=== PATIENT | female | born 1960 | race Caucasian/White ===

== ENCOUNTER 2022-07-14 08:12 | Outpatient (CLI) | payer BC, SELFPAY ==
--- OUTSIDE RECORDS SUMMARY | 2022-07-14 08:14 | XMS_ITS | Encounter Summary ---
:1960 Author Organization [facility] Address [address] [place] [address] Care Team Providers Name Role Phone Toña Tejada APRN, ANYI Primary Care Provider [phone] Reason for Visit Reason Onset Date Comments RX 04/25/2020 Encounter Details Date Type Department Care Team Description 04/25/2020 Telephone [place] Matthew Hopkins MD RX [address] [place], [place] [address] [place], [place] [phone] (Wo rk) Social History Tobacco Use Types Packs/Day Years Used Date Former Smoker Smokeless Tobacco: Never Used Alcohol Use Standard Drinks/Week Comments Yes 0 (1 standard drink = 0.6 oz pure alcoho l) Sex Assigned at Date Recorded Not on file documented as of this encounter Miscellaneous Notes Telephone Encounter - Elizabeth Mishra - 04/25/2020 2:26 PM CDT Patient is currently at pharmacy ([facility] in [place]) wanting to slate picker RX for Synthroid but it is not there. She is wondering if this could be sent while she is there. documented in this encounter Plan of Treatment Not on filedocumented as of this encounter Visit Diagnoses Diagnosis Mixed hyperlipidemia - Primary Hypothyroidism, unspecified type documented in this encounter Care Teams Air Bag Builder Relationship Specialty Start Date End Date Toña Tejada APRN, FREIGHT ADJUSTER PCP - General Family Medicine 01/06/19 06/06/20 100 [place] [address] documented as of this encounter
--- OUTSIDE RECORDS SUMMARY | 2022-07-14 08:14 | XMS_ITS | Encounter Summary ---
:1960 Author Organization [facility] Address [address] [place] [address] Care Team Providers Name Role Phone None, Pcp Primary Care Provider Unavailable Reason for Visit Reason Comments Med Refill Encounter Details Date Type Department Care Team Description 04/22/2021 Refill Matthew Yeh, Hypothyroidism, unspecified type; [address] [facility] 20 Anxiety; [place], [place] [address] [place] Depression, unspecified depression type [phone] [place] [address] Social History Tobacco Use Types Packs/Day Years Used Date Former Smoker Smokeless Tobacco: Never Used Alcohol Use Standard Drinks/Week Comments Yes 0 (1 standard drink = 0.6 oz pure alcoho l) Sex Assigned at Date Recorded Not on file documented as of this encounter Miscellaneous Notes Telephone Encounter - Roxy Leggett LPN - 04/24/2021 9:22 AM CDT Noted Telephone Encounter - Matthew Hopkins MD - 04/23/2021 6:13 PM CDT Lab orders have been placed. Telephone Encounter - Wendi Espana - 04/23/2021 11:48 AM CDT Pt is out of medications Patient will be in on 04/29 for fasting labs and visit on 05/06. Please order labs needed. Thank you documented in this encounter Plan of Treatment Not on filedocumented as of this encounter Visit Diagnoses Diagnosis Hypothyroidism, unspecified type Anxiety Anxiety state, unspecified Depression, unspecified depression type documented in this encounter Care Teams Certified Dental Assistant Relationship Specialty Start Date End Date None, Pcp PCP - General Mulling Machine Operator 06/26/20 06/02/21 [address] [place] [address] documented as of this encounter
--- OUTSIDE RECORDS SUMMARY | 2022-07-14 08:14 | XMS_ITS | Encounter Summary ---
:1960 Author Organization [facility] Address [address] [place] [address] Care Team Providers Name Role Phone Toña Tejada INSIDE SALES SPECIALIST, [facility] Primary Care Provider Reason for Visit Reason Onset Date Comments patient call 01/24/2020 Encounter Details Date Type Department Care Team Description 01/24/2020 Telephone [place] Toña Tejada, patient call [address] [employer] INSIDE SALES SPECIALIST, [place], [place] [address] [facility] [phone] [place], [place] [address] Social History Tobacco Use Types Packs/Day Years Used Date Former Smoker Smokeless Tobacco: Never Used Alcohol Use Standard Drinks/Week Comments Yes 0 (1 standard drink = 0.6 oz pure alcoho l) Sex Assigned at Date Recorded Not on file documented as of this encounter Miscellaneous Notes Telephone Encounter - Cherelle Dempsey RN - 01/25/2020 8:57 AM CDT Patient informed. Telephone Encounter - April Damon - 01/24/2020 2:05 PM CDT Mailbox full unable to leave a message Telephone Encounter - Matthew Hopkins MD - 01/24/2020 1:43 PM CDT Let [facility] know that I have filled her request for duloxetine. I gave her 90 days and no refills asshe will be due towards the end of April for a clinic visit, lab tests etc. After that visit then we will get her a full year of meds. Telephone Encounter - Beatriz Fitch - 01/24/2020 11:49 AM CDT [facility] stating that the pharmacy was supposed to send a request for Duloxetine. I don't seethat request. She is wanting this filled any questions she can be reached at [phone] documented in this encounter Plan of Treatment Not on filedocumented as of this encounter Visit Diagnoses Diagnosis Anxiety Anxiety state, unspecified Depression, unspecified depression type documented in this encounter Care Teams Scene And Lighting Design Lecturer Relationship Specialty Start Date End Date Toña Tejada, INSIDE SALES SPECIALIST, WIRE COINER PCP - General Family Medicine 01/06/19 06/06/20 100 [facility] [place] [address] documented as of this encounter
--- OUTSIDE RECORDS SUMMARY | 2022-07-14 08:14 | XMS_ITS | Encounter Summary ---
:1960 Author Organization [facility] Address [address] [place] [address] Care Team Providers Name Role Phone None, Pcp Primary Care Provider Unavailable Encounter Details Date Type Department Care Team Description 04/29/2021 Lab [place] Diabetes mellitus screening; [address] Mixed hyperlipidemia; [place], [place] [address] Hypothyroidism, unspecified type; [phone] Screening for d eficiency anemia Social History Tobacco Use Types Packs/Day Years Used Date Former Smoker Smokeless Tobacco: Never Used Alcohol Use Standard Drinks/Week Comments Yes 0 (1 standard drink = 0.6 oz pure alcoho l) Sex Assigned at Date Recorded Not on file documented as of this encounter Plan of Treatment Not on filedocumented as of this encounter Procedures Procedure Name Priority Date/Time Associated Diagnosis Comme nts FASTING ? Routine 04/29/2021 8:36 AM Results f or this CDT procedure are i n the results section. CBC BRANCH OFFICE Routine 04/29/2021 8:34 AM Resu lts for this W/DIFF CDT procedure are i n the results section. HEMOCUE GLUCOSE Routine 04/29/2021 8:34 AM Result s for this CDT procedure are i n the results section. TSH Routine 04/29/2021 8:34 AM Hypothyroidism, Result s for this CDT unspecified type procedure a re in the results section. LIPID PANEL Routine 04/29/2021 8:34 AM Mixed hyperlipidemia R esults for this CDT procedure are i n the results section. documented in this encounter Results Fasting ? (04/29/2021 8:36 AM CDT) P athologist Signature Fasting? Yes 04/29/2021 8:51 [facility] AM CDT [place] Specimen Anatomical Collection Method Collection Time Receive d Time (Source) Location / / Volume Laterality 04/29/2021 8:36 AM 8:36 CDT AM CDT Matthew Hopkins MD LAB BLOOD ORDERABLES Performing Organization Address City/State/ZIP Code Phon e Number [facility] [place] [address] [place] [address] HemoCue glucose (04/29/2021 8:34 AM CDT) P athologist Signature Glucose, Bld 96 70 - 100 04/29/2021 [facility] mg/dL 8:53 AM CDT [place] Comment: . Specimen Anatomical Collection Method Collection Time Receive d Time (Source) Location / / Volume Laterality 04/29/2021 8:34 AM 8:51 CDT AM CDT Matthew Hopkins MD LAB BLOOD ORDERABLES Performing Organization Address City/[facility]/ZIP Code Phon e Number [facility] [place] [address] [place] [address] CBC Branch Off w/Diff (04/29/2021 8:34 AM CDT) P athologist Signature WBC 6.1 3.5 - 10.5 04/29/2021 [facility] K/uL 8:53 AM CDT [place] RBC 4.34 3.90 - 04/29/2021 [facility] 5.00 M/uL 8:53 AM CDT [place] Hemoglobin 13.6 12.0 - 04/29/2021 [facility] 15.5 g/dL 8:53 AM CDT [place] Hematocrit 40.9 35.0 - 04/29/2021 [facility] 44.0 % 8:53 AM CDT [place] Platelets 302 150 - 450 04/29/2021 [facility] K/uL 8:53 AM CDT [place] MCV 94.2 81.6 - 04/29/2021 [facility] 98.3 fL 8:53 AM CDT [place] MCH 31.3 26.0 - 04/29/2021 [facility] 32.0 pg 8:53 AM CDT [place] MCHC 33.3 32.0 - 04/29/2021 [facility] 36.0 g/dL 8:53 AM CDT [place] RDW 12.5 11.9 - 04/29/2021 [facility] 15.5 % 8:53 AM CDT [place] Lymphocytes % 35.9 % 04/29/2021 [facility] 8:53 AM CDT [place] Mid-size Cells 6.3 % 04/29/2021 [facility] 8:53 AM CDT [place] Granulocytes/Tung 57.8 % 04/29/2021 [facility] trophils 8:53 AM CDT [place] Lymphocytes 2.2 0.9 - 2.9 04/29/2021 [facility] Absolute K/uL 8:53 AM CDT [place] MIDS Absolute 0.4 0.4 - 1.5 04/29/2021 [facility] K/uL 8:53 AM CDT [place] Granulocytes/Tung 3.5 1.7 - 7.0 04/29/2021 [facility] trophils K/uL 8:53 AM CDT [place] Absolute Specimen Anatomical Collection Method Collection Time Receive d Time (Source) Location / / Volume Laterality 04/29/2021 8:34 AM 8:51 CDT AM CDT Matthew Hopkins MD LAB BLOOD ORDERABLES Performing Organization Address City/State/ZIP Code Phon e Number [facility] [place] [address] [place] [address] (ABNORMAL) TSH (04/29/2021 8:34 AM CDT) Analysis Performed At Patho logist Time Signature TSH, Sensitive 5.45 (H) 0.46 - 04/29/2021 [facility] 4.68 mIU/L 2:25 PM CDT [facility] Comment: The results from this or any other diagn ostic test should be used and interpreted only in the context of the overall clinical picture. Biotin levels in serum remain elevated f or up to 24 hours after oral or intravenous biotin adminis tration and may interfere with this assay to produce unr eliable results. Heterophilic antibodies in serum or plas ma samples may cause interference in immunoassays. ??Exposure to animal antigens, either in the environment or as part of treatment or imaging procedures, may have circulating anti-an imal antibodies present. These antibodies may interfere with the assay reagents to produce unreliable results. ??Results which are inconsistent with clinical observations indicate the need for additional testing. Specimen Anatomical Collection Method Collection Time Receive d Time (Source) Location / / Volume Laterality Blood 04/29/2021 8:34 AM CDT 12:34 PM CDT D. Avery Hopkins MD LAB BLOOD ORDERABLES Performing Organization Address City/State/ZIP Code Phon e Number [facility] [address] [place] [address] (ABNORMAL) Lipid panel (04/29/2021 8:34 AM CDT) athologist Signature Cholesterol 225 (H) 0 - 199 04/29/2021 [facility] mg/dL 2:45 PM CDT [facility] Comment: Recommended by National Cholesterol Education Program (ATP III) -------- Cholesterol Ranges -------- <200 ?Desirable 200-239 ? Borderline high >=240 ? High Triglycerides 329 (H) 0 - 149 mg/dL 04/29/2021 2:45 PM CDT [facility] Comment: -------- TRIG Ranges -------- <150 ?Normal 150-199 ? Borderline high 200-499 ? High >=500 ? Very high HDL 52 40 - 250 mg/dL 04/29/2021 2:45 PM CDT [facility] Comment: -------- HDL Ranges -------- <40 ?Low 40-59 ?Normal >=60 ? Optimal LDL Calculated 107 (H) 0 - 99 mg/dL 04/29/2021 2:45 PM CDT [facility] Comment: -------- LDL Ranges -------- <100 ? Optimal 100-129 ?Near optimal/above op timal 130-159 ?Borderline high 160-189 ?High >=190 ?Very high Fasting? Yes 04/29/2021 8:51 AM CDT [facility] Specimen Anatomical Collection Method Collection Time Receive d Time (Source) Location / / Volume Laterality Blood 04/29/2021 8:34 AM CDT 12:45 PM CDT D. Avery Hopkins MD LAB BLOOD ORDERABLES Performing Organization Address City/State/ZIP Code Phon e Number [facility] [address] [place] [address] documented in this encounter Visit Diagnoses Diagnosis Diabetes mellitus screening Screening for diabetes mellitus Mixed hyperlipidemia Hypothyroidism, unspecified type Screening for deficiency anemia Screening for other and unspecified defi ciency anemia documented in this encounter Care Teams Rn Intensive Care Unit Relationship Specialty Start Date End Date None, Pcp PCP - General Associate Professor Of Communication 06/26/20 06/02/21 [address] [place] [address] documented as of this encounter
--- OUTSIDE RECORDS SUMMARY | 2022-07-14 08:14 | XMS_ITS | Encounter Summary ---
:1960 Author Organization [facility] Address [address] [place] [address] Care Team Providers Name Role Phone None, Pcp Primary Care Provider Unavailable Encounter Details Date Type Department Care Team Description 01/25/2021 Immunization Family Medicine [address] [place] [address] Social History Tobacco Use Types Packs/Day Years Used Date Former Smoker Smokeless Tobacco: Never Used Alcohol Use Standard Drinks/Week Comments Yes 0 (1 standard drink = 0.6 oz pure alcoho l) Sex Assigned at Date Recorded Not on file documented as of this encounter Plan of Treatment Not on filedocumented as of this encounter Visit Diagnoses Not on filedocumented in this encounter Care Teams Lease Administration Analyst Relationship Specialty Start Date End Date None, Pcp PCP - General Senior Solutions Engineer 06/26/20 06/02/21 [address] [place] [address] documented as of this encounter
--- OUTSIDE RECORDS SUMMARY | 2022-07-14 08:14 | XMS_ITS | Encounter Summary ---
:1960 Author Organization [facility] Address [address] [place] [address] Care Team Providers Name Role Phone Matthew Hopkins MD Primary Care Provider Encounter Details Date Type Department Care Team Description 06/02/2022 Lab [place] Screening cholesterol level; [address] Hypothyroidism, unspecified type; [place], [place] [address] Diabetes mellitus screening; [phone] Screening for d eficiency anemia Social History [...] Name Priority Date/Time Associated Diagnosis Comme nts GLOMERULAR Routine 06/02/2022 9:33 AM Diabetes mellitus Resu lts for this FILTRATION RATE CDT screening procedure ar e in the results section. CBC BRANCH OFFICE Routine 06/02/2022 9:33 AM Resu lts for this W/DIFF CDT procedure are i n the results section. TSH Routine 06/02/2022 9:33 AM Hypothyroidism, Result s for this CDT unspecified type procedure a re in the results section. LIPID PANEL Routine 06/02/2022 9:33 AM Screening Results f or this CDT cholesterol level procedure are in the results section. BASIC METABOLIC Routine 06/02/2022 9:33 AM Diabetes mellitus R esults for this PANEL CDT screening procedure are i n the results section. documented in this encounter Results Glomerular filtration rate (GFR) (06/02/2022 9:33 AM CDT) P athologist Signature GFR >60 06/02/2022 [facility] 2:16 PM CDT [facility] >60 06/02/2022 [facility] [place] GFR 2:16 PM CDT [facility] Comment: GFR calculated from serum creatinine v alue Chronic Kidney Disease less than 60 mL/m in/1.73 m2 Kidney Failure less than 15 mL/min/1.73 m2 IDMS-Traceable MDRD Study Equation used. Specimen Anatomical Collection Method Collection Time Receive d Time (Source) Location / / Volume Laterality 06/02/2022 9:33 AM 9:33 CDT AM CDT DAakash Hopkins MD LAB BLOOD ORDERABLES Performing Organization Address City/State/ZIP Code Phon e Number [facility] [address] [place] [address] CBC Branch Off w/Diff (06/02/2022 9:33 AM CDT) P athologist Signature WBC 4.6 3.5 - 10.5 06/02/2022 [facility] K/uL 10:26 AM CDT [place] RBC 4.42 3.90 - 06/02/2022 [facility] 5.00 M/uL 10:26 AM CDT [place] Hemoglobin 14.0 12.0 - 06/02/2022 [facility] 15.5 g/dL 10:26 AM CDT [place] Hematocrit 43.0 35.0 - 06/02/2022 [facility] 44.0 % 10:26 AM CDT [place] Platelets 315 150 - 450 06/02/2022 [facility] K/uL 10:26 AM CDT [place] MCV 97.3 81.6 - 06/02/2022 [facility] 98.3 fL 10:26 AM CDT [place] MCH 31.7 26.0 - 06/02/2022 [facility] 32.0 pg 10:26 AM CDT [place] MCHC 32.6 32.0 - 06/02/2022 [facility] 36.0 g/dL 10:26 AM CDT [place] RDW 12.6 11.9 - 06/02/2022 [facility] 15.5 % 10:26 AM CDT [place] Lymphocytes % 43.7 % 06/02/2022 [facility] 10:26 AM CDT [place] Mid-size Cells 8.7 % 06/02/2022 [facility] 10:26 AM CDT [place] Granulocytes/Tung 47.6 % 06/02/2022 [facility] trophils 10:26 AM CDT [place] Lymphocytes 2.0 0.9 - 2.9 06/02/2022 [facility] Absolute K/uL 10:26 AM CDT [place] MIDS Absolute 0.4 0.4 - 1.5 06/02/2022 [facility] K/uL 10:26 AM CDT [place] Granulocytes/Tung 2.2 1.7 - 7.0 06/02/2022 [facility] trophils K/uL 10:26 AM CDT [place] Absolute Specimen Anatomical Collection Method Collection Time Receive d Time (Source) Location / / Volume Laterality 06/02/2022 9:33 AM 9:36 CDT AM CDT D. Avery Hopkins MD LAB BLOOD ORDERABLES Performing Organization Address City/State/ZIP Code Phon e Number [facility] [place] [address] [place] [address] (ABNORMAL) Basic metabolic panel (06/02/2022 9:33 AM CDT) Analysis Performed At Patho logist Time Signature Sodium 141 135 - 145 06/02/2022 [facility] mEq/L 2:16 PM [facility] Potassium 5.0 3.5 - 5.1 06/02/2022 [facility] mEq/L 2:16 PM [facility] Chloride 102 98 - 107 06/02/2022 [facility] mEq/L 2:16 PM [facility] CO2 28 22 - 29 06/02/2022 [facility] mmol/L 2:16 PM [facility] Creatinine 0.8 0.4 - 1.2 06/02/2022 [facility] mg/dL 2:16 PM [facility] BUN 10 5 - 25 06/02/2022 [facility] mg/dL 2:16 PM [facility] Glucose 114 (H) 70 - 100 06/02/2022 [facility] mg/dL 2:16 PM [facility] Calcium, 9.5 8.4 - 10.2 06/02/2022 [facility] Total,S mg/dL 2:16 PM CDT [facility] Specimen Anatomical Collection Method Collection Time Receive d Time (Source) Location / / Volume Laterality Blood 06/02/2022 9:33 AM 2 CDT 12:39 PM CDT Matthew Hopkins MD LAB BLOOD ORDERABLES Performing Organization Address [facility] e Number [facility] [address] [place] [address] TSH (06/02/2022 9:33 AM CDT) athologist Signature TSH, Sensitive 1.80 0.46 - 06/03/2022 [facility] 4.68 mIU/L 2:09 PM CDT [facility] Comment: The results from this [...] (Source) Location / / Volume Laterality Blood 06/02/2022 9:33 AM 2 CDT 12:42 PM CDT Matthew Hopkins MD LAB BLOOD ORDERABLES Performing Organization Address [facility] Phon e Number [facility] [address] [place] [address] (ABNORMAL) Lipid panel (06/02/2022 9:33 AM CDT) athologist Signature Cholesterol 316 (H) 0 - 199 06/02/2022 [facility] mg/dL 2:16 PM CDT [facility] Comment: Recommended by National Cholesterol Education Program (ATP III) -------- Cholesterol Ranges -------- <200 ?Desirable 200-239 ? Borderline high >=240 ? High Triglycerides 741 (H) 0 - 149 mg/dL 06/02/2022 2:16 PM CDT [facility] Comment: -------- TRIG Ranges -------- <150 ?Normal 150-199 ? Borderline high 200-499 ? High >=500 ? Very high HDL 41 40 - 250 mg/dL 06/02/2022 2:16 PM CDT [facility] Comment: -------- HDL Ranges -------- <40 ?Low 40-59 ?Normal >=60 ? Optimal LDL Calculated see below 0 - 99 mg/dL 06/02/2022 2:16 PM CDT [facility] Comment: Trig >400, calculated LDL invalid. -------- LDL Ranges -------- <100 ? Optimal 100-129 ?Near optimal/above op timal 130-159 ?Borderline high 160-189 ?High >=190 ?Very high Fasting? Yes 06/02/2022 9:36 AM CDT [facility] Specimen Anatomical Collection Method Collection Time Receive d Time (Source) Location / / Volume Laterality Blood 06/02/2022 9:33 AM 2 CDT 12:39 PM CDT D. Avery Hopkins MD LAB BLOOD ORDERABLES Performing Organization Address City/State/ZIP Code Phon e Number [facility] [address] [place] [address] documented in this encounter Visit Diagnoses Diagnosis Screening cholesterol level Screening for lipoid disorders Hypothyroidism, unspecified type Diabetes mellitus screening Screening for diabetes mellitus Screening for deficiency anemia Screening for other and unspecified defi ciency anemia documented in this encounter Care Teams Incoming Inspector Relationship Specialty Start Date End Date Matthew Hopkins MD PCP - General 06/03/[address] [place] [address] documented as of this encounter
--- OUTSIDE RECORDS SUMMARY | 2022-07-14 08:14 | XMS_ITS | Encounter Summary ---
:1960 Author Organization [facility] Address [address] [place] [address] Care Team Providers Name Role Phone Matthew Hopkins MD Primary Care Provider Reason for Visit Reason Comments Med Refill Encounter Details Date Type Department Care Team Description 05/21/2022 Refill MasonMatthew Reyna, Anxiety; [address] [facility] Depression, unspecified depression type [place], [place] [address] [phone] [place] [address] Social History Tobacco Use Types Packs/Day Years Used Date Former Smoker Smokeless Tobacco: Never Used Alcohol Use Standard Drinks/Week Comments Yes 0 (1 standard drink = 0.6 oz pure alcoho l) Sex Assigned at Date Recorded Not on file documented as of this encounter Miscellaneous Notes Telephone Encounter - Shayla Gutierrez - 05/22/2022 11:07 AM CDT Pt scheduled her annual med review with Dr. Hopkins for Thursday06/02/22. Pt only has 2 pills of heranti-depressant med remaining and is asking for a short script to misa her to her appt. Pt uses [facility]. Please call Pt at [phone] to advise. Telephone Encounter - Coco Waggoner - 05/22/2022 10:10 AM CDT LMTCB to make annual med review appt. Telephone Encounter - Margie Montes LPN - 05/21/2022 2:27 PM CDT Last visit in provider department: 05/06/2021 Last visit requested medication was discussed: Last Rx: #90 with 3 refills 04/23/2021 Requested Prescriptions Pending Prescriptions Disp Refills ??? DULoxetine (CYMBALTA) [address] capsule [Pharmacy Med Name: DULOXETINE DR 60MG CAPSULES] 90 capsule 3 Sig: TAKE 1 CAPSULE(60 MG) BY MOUTH 1 TIME EACH DAY Labs: Last PHQ-9 score not obtained in last 12 months. Last SAROJ-7 score not obtained in last 12 months Vitals: BP Readings from Last 2 Encounters: 05/06/21 122/88 04/23/20 122/80 Upcoming appointment with provider: Visit date not found Patient is due for annual appointment. PSR/Nurse: Please contact patient to assist with scheduling. documented in this encounter Plan of Treatment Not on filedocumented as of this encounter Visit Diagnoses Diagnosis Anxiety Anxiety state, unspecified Depression, unspecified depression type documented in this encounter Care Teams Cyber Intel Planner Relationship Specialty Start Date End Date Matthew Hopkins MD PCP - General 06/03/[address] [place] [address] documented as of this encounter
--- OUTSIDE RECORDS SUMMARY | 2022-07-14 08:14 | XMS_ITS | Encounter Summary ---
:1960 Author Organization [facility] Address [address] [place] [address] Care Team Providers Name Role Phone None, Pcp Primary Care Provider Unavailable Encounter Details Date Type Department Care Team Description 12/24/2020 Orders Only [place] Matthew Hopkins MD [address] [facility] [address] [facility] 20 [place], [place] [address] [place], [place] [phone] (Wo rk) Social History Tobacco Use Types [...] on filedocumented in this encounter Care Teams Box Machine Operator Relationship Specialty Start Date End Date None, Pcp PCP - General Insole And Outsole Splitter 06/26/20 06/02/21 [address] [place] [address] documented as of this encounter
--- OUTSIDE RECORDS SUMMARY | 2022-07-14 08:14 | XMS_ITS | Encounter Summary ---
:1960 Author Organization [facility] Address [address] [place] [address] Care Team Providers Name Role Phone None, Pcp Primary Care Provider Unavailable Encounter Details Date Type Department Care Team Description 12/24/2020 Lab [place] Mixed hyperlipidemia [address] [place], [place] [address] Social History Tobacco Use Types Packs/Day Years Used Date Former Smoker Smokeless Tobacco: Never Used Alcohol Use Standard Drinks/Week Comments Yes 0 (1 standard drink = 0.6 oz pure alcoho l) Sex Assigned at Date Recorded Not on file documented as of this encounter Plan of Treatment Not on filedocumented as of this encounter Procedures Procedure Name Priority Date/Time Associated Diagnosis Comme nts LIPID PANEL Routine 12/24/2020 9:21 AM Mixed hyperlipidemia R esults for this CDT procedure are i n the results section . documented in this encounter Results (ABNORMAL) Lipid panel (12/24/2020 9:21 AM CDT) P athologist Signature Cholesterol 256 (H) 0 - 199 12/24/2020 [facility] mg/dL 1:37 PM T [facility] Comment: Recommended by National Cholesterol Education Program (ATP III) -------- Cholesterol Ranges -------- <200 ?Desirable 200-239 ? Borderline high >=240 ? High Triglycerides 351 (H) 0 - 149 mg/dL 12/24/2020 1:37 PM CDT [facility] Comment: -------- TRIG Ranges -------- <150 ?Normal 150-199 ? Borderline high 200-499 ? High >=500 ? Very high HDL 52 40 - 250 mg/dL 12/24/2020 1:37 PM CDT [facility] Comment: -------- HDL Ranges -------- <40 ?Low 40-59 ?Normal >=60 ? Optimal LDL Calculated 134 (H) 0 - 99 mg/dL 12/24/2020 1:37 PM CDT [facility] Comment: -------- LDL Ranges -------- <100 ? Optimal 100-129 ?Near optimal/above op timal 130-159 ?Borderline high 160-189 ?High >=190 ?Very high Fasting? Yes 12/24/2020 9:24 AM CDT [facility] Specimen Anatomical Collection Method Collection Time Receive d Time (Source) Location / / Volume Laterality Blood 12/24/2020 9:21 AM 1:02 CDT PM CDT D. Avery Hopkins MD LAB BLOOD ORDERABLES Performing Organization Address City/State/ZIP Code Phon e Number [facility] [address] [place] [address] documented in this encounter Visit Diagnoses Diagnosis Mixed hyperlipidemia documented in this encounter Care Teams Pleat Patternmaker Relationship Specialty Start Date End Date None, Pcp PCP - General Rotary Filter Operator 06/26/20 06/02/21 [address] [place] [address] documented as of this encounter
--- OUTSIDE RECORDS SUMMARY | 2022-07-14 08:14 | XMS_ITS | Encounter Summary ---
:1960 Author Organization [facility] Address [address] [place] [address] Care Team Providers Name Role Phone Matthew Hopkins MD Primary Care Provider Reason for Visit Reason Onset Date Comments anti-nausea Rx 07/09/2022 Encounter Details Date Type Department Care Team Description 07/09/2022 Telephone [place] Matthew Hopkins MD anti-nausea Rx [address] [place], [place] [address] [place], [place] [phone] (Wo rk) Social History Tobacco Use Types Packs/Day Years Used Date Former Smoker Smokeless Tobacco: Never Used Alcohol Use Standard Drinks/Week Comments Yes 0 (1 standard drink = 0.6 oz pure alcoho l) Sex Assigned at Date Recorded Not on file documented as of this encounter Miscellaneous Notes Telephone Encounter - Dora Downing RN - 07/10/2022 2:09 PM CDT Message left with patient on secured line. Telephone Encounter - Matthew Hopkins MD - 07/10/2022 1:56 PM CDT Let [facility] know that I have sent to [facility] in [place] for her prescription for Zofran Telephone Encounter - Dora Downing RN - 07/10/2022 10:56 AM CDT Please order for nausea before colonoscopy. Thank you. Telephone Encounter - Shayla Matt - 07/09/2022 10:59 AM CDT Pt called stating she is going to be having a colonoscopy 07/14/22 at [facility]. Pt said when had this procedure before she had quite a bit of nausea. [facility] advised her to contact her primary and see if he would prescribe an anti-nausea Rx like Zofran. Pt uses [facility]. Please call Pt at [phone] to advise. documented in this encounter Plan of Treatment Not on filedocumented as of this encounter Visit Diagnoses Diagnosis Nausea - Primary Nausea alone documented in this encounter Care Teams Makeup Artist Relationship Specialty Start Date End Date Matthew Hopkins MD PCP - General 06/03/[address] [place] [address] documented as of this encounter
--- OUTSIDE RECORDS SUMMARY | 2022-07-14 08:14 | XMS_ITS | Encounter Summary ---
:1960 Author Organization [facility] Address [address] [place] [address] Care Team Providers Name Role Phone None, Pcp Primary Care Provider Unavailable Reason for Referral Consultation (Routine) - Closed Specialty Diagnoses / Procedures Referred By Contact Refer red To Contact Diagnoses Lip lesion Matthew Hopkins MD Other [address] [place], [place] [address] Referral ID Status Reason Start Date Expiration Date Visits Requ ested Visits Authorized [id number] Closed 05/06/2021 05/06/2022 1 1 Encounter Details Date Type Department Care Team Description 05/06/2021 Orders Only Matthew Yeh Lip lesion (Primary Dx) [address] [place], [place] [address] [place] [address] Social History Tobacco Use Types Packs/Day Years Used Date Former Smoker Smokeless Tobacco: Never Used Alcohol Use Standard Drinks/Week Comments Yes 0 (1 standard drink = 0.6 oz pure alcoho l) Sex Assigned at Date Recorded Not on file documented as of this encounter Plan of Treatment Scheduled Referrals Name Type Priority Associated Order Schedule Diagnoses Ambulatory External Outpatient Referral Routine Lip lesion O rdered: Referral 05/06/2021 documented as of this encounter Visit Diagnoses Diagnosis Lip lesion - Primary Diseases of lips documented in this encounter Care Teams Stores Assistant Relationship Specialty Start Date End Date None, Pcp PCP - General Blood Donor Recruiter 06/26/20 06/02/[address] [place] [phone] documented as of this encounter
--- OUTSIDE RECORDS SUMMARY | 2022-07-14 08:14 | XMS_ITS | Encounter Summary ---
:1960 Author Organization [facility] Address [address] [place] [address] Care Team Providers Name Role Phone Terrell Toñaanna marie Jerez APRN, DIE CASTING MACHINE MAINTAINER Primary Care Provider [phone] Encounter Details Date Type Department Care Team Description 04/08/2019 Lab [place] Hypothyroidism, unspecified [address] [place] [address] Social History Tobacco Use Types [...] Name Priority Date/Time Associated Diagnosis Comme nts TSH Routine 04/08/2019 3:14 PM Hypothyroidism, Resul ts for this CDT unspecified type procedure a re in the results section. documented in this encounter Results TSH (04/08/2019 3:14 PM CDT) P athologist Signature TSH, Sensitive 3.36 0.46 - 04/08/2019 [facility] L 4.68 mIU/L 6:52 PM CDT [facility] Comment: The results [...] (Source) Location / / Volume Laterality Blood (Blood, 04/08/2019 3:14 PM 04/08/20 6:01 Venous) CDT PM CDT Toña Tejada APRN, CNP LAB BLOOD ORDERABLES Performing Organization Address City/State/[facility] Code Phon e Number [facility] [address] [place] [address] documented in this encounter Visit Diagnoses Diagnosis Hypothyroidism, unspecified type documented in this encounter Care Teams Manager Service Desk Relationship Specialty Start Date End Date Toña Tejada APRN, DIE CASTING MACHINE MAINTAINER PCP - General Family Medicine 01/06/19 06/06/[address] [place] [address] documented as of this encounter
--- OUTSIDE RECORDS SUMMARY | 2022-07-14 08:14 | XMS_ITS | Encounter Summary ---
:1960 Author Organization [facility] Address [address] [place] [address] Care Team Providers Name Role Phone None, Pcp Primary Care Provider Unavailable Encounter Details Date Type Department Care Team Description 04/23/2021 Orders Only Matthew Yeh Screening for deficiency ane yoanna (Primary Dx); [address] [place] Hypothyroidism, unspecified type; [place], [place] [address] Mixed hyperlipidemia; [phone] [place] [address] Social History Tobacco Use Types Packs/Day Years Used Date Former Smoker Smokeless Tobacco: Never Used Alcohol Use Standard Drinks/Week Comments Yes 0 (1 standard drink = 0.6 oz pure alcoho l) Sex Assigned at Date Recorded Not on file documented as of this encounter Plan of Treatment Not on filedocumented as of this encounter Results (ABNORMAL) Lipid panel (04/29/2021 8:34 AM CDT) athologist Signature Cholesterol 225 (H) 0 - 199 04/29/2021 [facility] mg/dL 2:45 PM T [facility] Comment: Recommended by National Cholesterol Education Program (ATP III) -------- Cholesterol Ranges -------- <200 ?Desirable 200-239 ? Borderline high >=240 ? High Triglycerides 329 (H) 0 - 149 mg/dL 04/29/2021 2:[address] [facility] Comment: -------- TRIG Ranges -------- <150 ?Normal 150-199 ? Borderline high 200-499 ? High >=500 ? Very high HDL 52 40 - 250 mg/dL 04/29/2021 2:[address] [facility] Comment: -------- HDL Ranges -------- <40 ?Low 40-59 ?Normal >=60 ? Optimal LDL Calculated 107 (H) 0 - 99 mg/dL 04/29/2021 2:[address] [facility] Comment: -------- LDL Ranges -------- <100 ? Optimal 100-129 ?Near optimal/above op timal 130-159 ?Borderline high 160-189 ?High >=190 ?Very high Fasting? Yes 04/29/2021 8:[address] [facility] Specimen Anatomical Collection Method Collection Time Receive d Time (Source) Location / / Volume Laterality Blood 04/29/2021 8:34 AM CDT 12:45 PM CDT D. A[place] Hopkins MD LAB BLOOD ORDERABLES Performing Organization Address City/State/ZIP Code Phon e Number [facility] [address] [place] [address] (ABNORMAL) TSH (04/29/2021 8:34 AM CDT) Analysis Performed At Patho logist Time Signature TSH, Sensitive 5.45 (H) 0.46 - 04/29/2021 [facility] 4.68 mIU/L 2:25 PM T [facility] Comment: The results from this or [...] 04/29/2021 8:34 AM CDT 12:34 PM CDT Matthew Hopkins MD LAB BLOOD ORDERABLES Performing Organization Address City/State/ZIP Code Phon e Number [facility] [address] [place] [address] documented in this encounter Visit Diagnoses Diagnosis Screening for deficiency anemia - Primar y Screening for other and unspecified defi ciency anemia Hypothyroidism, unspecified type Mixed hyperlipidemia Diabetes mellitus screening Screening for diabetes mellitus documented in this encounter Care Teams Nursing Assistants Teacher Relationship Specialty Start Date End Date None, Pcp PCP - General Veterinary Parasitologist 06/26/20 06/02/21 [address] [place] [address] documented as of this encounter
--- OUTSIDE RECORDS SUMMARY | 2022-07-14 08:14 | XMS_ITS | Encounter Summary ---
:1960 Author Organization [facility] Address [address] [place] [address] Care Team Providers Name Role Phone None, Pcp Primary Care Provider Unavailable Reason for Visit Reason Comments Med Refill Encounter Details Date Type Department Care Team Description 04/23/2021 Refill Matthew Yeh, Hypothyroidism, [address] unspecified [place] [address] [phone] [place] [address] Social History Tobacco Use Types Packs/Day Years Used Date Former Smoker Smokeless Tobacco: Never Used Alcohol Use Standard Drinks/Week Comments Yes 0 (1 standard drink = 0.6 oz pure alcoho l) Sex Assigned at Date Recorded Not on file documented as of this encounter Miscellaneous Notes Telephone Encounter - Mildred Stoll LPN - 04/25/2021 1:12 PM CDT Refills available at pharmacy. Receipt of refills confirmed by pharmacy. documented in this encounter Plan of Treatment Not on filedocumented as of this encounter Visit Diagnoses Diagnosis Hypothyroidism, unspecified type documented in this encounter Care Teams Distilling Department Supervisor Relationship Specialty Start Date End Date None, Pcp PCP - General Horse Wrangler 06/26/20 06/02/21 [address] [place] [address] documented as of this encounter
--- OUTSIDE RECORDS SUMMARY | 2022-07-14 08:14 | XMS_ITS | Encounter Summary ---
:[address] [facility] Address [address] [place] [address] Care Team Providers Name Role Phone Tejada Toñaanna marie Jerez APRN, BAKED GOODS STOCK CLERK Primary Care Provider [phone] Reason for Referral Imaging (Routine) - Closed Specialty Diagnoses / Procedures Referred By Contact Refer red To Contact Radiology Diagnoses Visit for screening mammogram Matthew Hopkins MD Procedures Mammogram breast screening tomosynthesis bilateral Mammogram breast screening bilateral [address] [place] [address] Referral ID Status Reason Start Date Expiration Date Visits Requ ested Visits Authorized [id number] Closed 04/23/2020 10/20/2020 1 1 Reason for Visit Reason Comments Medication Visit Encounter Details Date Type Department Care Team Description 04/23/2020 Office Visit Matthew Yeh Visit for screening mammogra m (Primary Dx); [address] [place] Medication monitoring encounter; [place], [place] [address] Diabetes mellitus screening; [phone] [place] Screening cholesterol level; [place], [place] Hypothyroid ism, unspecified type; [phone] Screening for deficiency anemia; [phone] Anxiety; (Work) Depression, unspecified depression type Social History Tobacco Use Types Packs/Day Years Used Date Former Smoker Smokeless Tobacco: Never Used Alcohol Use Standard Drinks/Week Comments Yes 0 (1 standard drink = 0.6 oz pure alcoho l) Sex Assigned at Date Recorded Not on file documented as of this encounter Last Filed Vital Signs Vital Sign Reading Time Taken Comments Blood Pressure 122/80 04/23/2020 11:35 AM CDT Pulse 92 04/23/2020 11:35 AM CDT Temperature 37.3 ??C (99.1 ??F) 04/23/2020 11:35 AM CDT Respiratory Rate 16 04/23/2020 11:35 AM CDT Oxygen Saturation 96% 04/23/2020 11:35 AM CDT Inhaled Oxygen Concentration - - Weight 79.1 kg (174 lb 6.4 oz) 04/23/2020 11:35 AM CDT Height 161.2 cm (5' 3.47) 04/23/2020 11:35 AM CDT Body Mass Index 30.44 04/23/2020 11:35 AM CDT documented in this encounter Progress Notes Matthew Hopkins MD - 04/23/2020 11:40 AM CDT Estab Patient Visit Subjective Patient ID: Genesis Barry is a 60 y.o. female. HPI the patient is here today for medication review laboratory testing review of systems appropriateimmunizations And recommendations. The patient is a 60-year-old individual that I have not seen previously as a patient though she has been in our clinic for a number of years. 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 They had acquired property and now they have built a house on the [place] for them to live in. Currently they have no job because they sold their business so probably enjoyed some time off but either she and/or her will both need to findsome type of job as her insurance coverage will run out towards the end of this year. They have 3 children 5 grandchildren. FAMILY HISTORY Father at age 80 from cirrhosis of the liver her mother is still living age 84 with history of thyroid problems total 2 sisters 2 brothers one brother age 35 from a seizure that occurred when he was taking a shower Her IMMUNIZATION status is up-to-date after getting tetanus shot today we did discuss the shingles vaccine with her as well. She is due for a MAMMOGRAM and she had a COLOGUARD test last year that was normal. Review of Systems other than some ongoing issues with anxiety and some depression??? She feels that she is relatively stable No headaches visual change or hearing change No fevers chills night sweats coughs or cold no shortness of breath or chest pain or palpitation No weight changes no nausea or vomiting no GI or issues that she is particularly concerned about no pain issues sores fluid retention. Objective Physical Exam she is alert she appears comfortable her vital signs show a blood pressure of 120/70 pulse 92 regular rate and rhythm temp 99.1 weight 174 pounds and her BMI is 30.44 O2 sats 96% Pupils equal conjunctiva clear Tongue is moist throat is clear Neck no adenopathy no thyromegaly no carotid bruits Lungs are clear without wheeze rales or rhonchi Cardiac is regular rate and rhythm without heart murmur Abdomen soft not tender no hepatosplenomegaly no masses Extremities have no fluid retention Appropriate laboratory tests and immunizations were done Assessment/Plan Diagnoses and all orders for this visit: Medication monitoring encounter Diabetes mellitus screening Screening cholesterol level - Lipid panel; Future Hypothyroidism, unspecified type - TSH; Future Screening for deficiency anemia Anxiety - DULoxetine (CYMBALTA) [address] capsule; Take 1 capsule (60 mg total) by mouth 1 (one) time each day Depression, unspecified depression type - DULoxetine (CYMBALTA) [address] capsule; Take 1 capsule (60 mg total) by mouth 1 (one) time each day Other orders - Tdap vaccine greater than or equal to 7yo IM Again the assessment includes the following Medication monitoring Hypothyroidism organ failure Depression without psychosis Obesity calorie induced The plan is update her immunizations appropriate laboratory tests renewal of medications and refer her to [place] for mammogram. documented in this encounter Plan of Treatment Not on filedocumented as of this encounter Procedures Procedure Name Priority Date/Time Associated Comments Diagnosis MAMMO BREAST SCREENING Routine 07/09/2020 3:14 PM Visit for sc reening Results for this TOMOSYNTHESIS CDT mammogram procedure are in BILATERAL the results section. documented in this encounter Results Mammogram breast screening tomosynthesis bilateral (07/09/2020 3:14 PM CDT) Anatomical Region Laterality Modality Breast Bilateral Mammography Specimen (Source) Anatomical Collection Method Collection Time Re ceived Time Location / / Volume Laterality 07/09/2020 3:14 PM CDT Impressions 07/09/2020 4:01 PM CDT IMPRESSION: BILATERAL BREASTS Negative; no evidence of malignancy. Rou heena follow-up is recommended in 1 year, or at next clinically-appropriate interval. ASSESSMENT: BI-RADS 1: Final Overall Assessment: Neg ative ResultCode BIRADS: 1 Side: B-Bilateral Breast composition: 2-There are scattere d areas of fibroglandular density Recommendation: N-Normal interval follow up in 12 months CAD REVIEW: Computer aided detection equipment was u sed during the interpretation of this study.- Narrative 07/09/2020 4:01 PM CDT EXAM DESCRIPTION: MAMMOGRAM BILATERAL SCREENING DIGITAL WI TH SHIRA INDICATION: 60 y/o ??F. ??screening mammogram. RISK FACTOR: Family: Weak family history of breast ca ncer (Maternal Cousin) COMPARISON: Comparison is made to images from 015 (Bilateral) FINDINGS: Routine bilateral combination 2D/DBT scr eening examination including CC and MLO projections. There are scattered areas of fibroglandu lar density. ??No significant masses, calcifications or other abnormal ities are seen. Procedure Note Shayla Huber, - 07/09/2020F ormatting of this note might be different from the original. EXAM DESCRIPTION: MAMMOGRAM BILATERAL SCREENING DIGITAL WI TH SHIRA INDICATION: 60 y/o F. screening mammogram. RISK FACTOR: Family: Weak family history of breast ca ncer (Maternal Cousin) COMPARISON: Comparison is made to images from 015 (Bilateral) FINDINGS: Routine bilateral combination 2D/DBT scr eening examination including CC and MLO projections. There are scattered areas of fibroglandu lar density. No significant masses, calcifications or other abnormal ities are seen. IMPRESSION: BILATERAL BREASTS Negative; no evidence of malignancy. Rou heena follow-up is recommended in 1 year, or at next clinically-appropriate interval. ASSESSMENT: BI-RADS 1: Final Overall Assessment: Neg ative ResultCode BIRADS: 1 Side: B-Bilateral Breast composition: 2-There are scattere d areas of fibroglandular density Recommendation: N-Normal interval follow up in 12 months CAD REVIEW: Computer aided detection equipment was u sed during the interpretation of this study.- Matthew Hopkins MD IMG BI PROCEDURES (ABNORMAL) Lipid panel (04/23/2020 12:21 PM CDT) athologist Signature Cholesterol 331 (A) 0 - 199 04/24/2020 [facility] mg/dL 3:[address] [facility] Comment: Recommended by National Cholesterol Education Program (ATP III) -------- Cholesterol Ranges -------- <200 ? Desirable 200-239 ? Borderline high >=240 ? High Triglycerides 789 (A) 0 - 149 mg/dL 04/24/2020 3:04 PM T [facility] Comment: -------- TRIG Ranges -------- <150 ?Normal 150-199 ? Borderline high 200-499 ? High >=500 ? Very high HDL 40 40 - 60 mg/dL 04/24/2020 3:03 PM T [facility] Comment: -------- HDL Ranges -------- <40 ?Low 40-59 ?Normal >=60 ? Optimal LDL Calculated see below 0 - 99 mg/dL 04/24/2020 3:04 PM T [facility] Comment: -------- LDL Ranges -------- <100 ? Optimal 100-129 ?Near optimal/above op timal 130-159 ?Borderline high 160-189 ?High >=190 ?Very high Trig >400, calculated LDL invalid. Fasting? No 04/23/2020 1:29 PM T [facility] Comment: Provider ok with patient not fasting. Specimen Anatomical Collection Method Collection Time Receive d Time (Source) Location / / Volume Laterality Blood 04/23/2020 12:21 04/24/2020 1:16 PM CDT PM CDT Matthew Hopkins MD LAB BLOOD ORDERABLES Performing Organization Address City/[facility]/ZIP Code Phon e Number [facility] [address] [place] [phone] TSH (04/23/2020 12:21 PM CDT) athologist Signature TSH, Sensitive 3.03 0.46 - 04/24/2020 [facility] 4.[facility] mIU/L 2:36 PM CDT [facility] Comment: The results [...] (Source) Location / / Volume Laterality Blood 04/23/2020 12:21 04/24/2020 PM CDT 12:42 PM CDT Matthew Hopkins MD LAB BLOOD ORDERABLES Performing Organization Address City/[facility]/ZIP Code Phon e Number [facility] [address] [place] [phone] documented in this encounter Visit Diagnoses Diagnosis Visit for screening mammogram - Primary Medication monitoring encounter Encounter for therapeutic drug monitorin g Diabetes mellitus screening Screening for diabetes mellitus Screening cholesterol level Screening for lipoid disorders Hypothyroidism, unspecified type Screening for deficiency anemia Screening for other and unspecified defi ciency anemia Anxiety Anxiety state, unspecified Depression, unspecified depression type documented in this encounter Care Teams Retail Agent Relationship Specialty Start Date End Date Toña Tejada, BUFFET ATTENDANT, BAKED GOODS STOCK CLERK PCP - General Family Medicine 01/06/19 06/06/20 [address] [place] [id number] documented as of this encounter
--- OUTSIDE RECORDS SUMMARY | 2022-07-14 08:14 | XMS_ITS | Encounter Summary ---
:1960 Author Organization [facility] Address [address] [place] [address] Care Team Providers Name Role Phone Toña Tejada APRN, CNP Primary Care Provider Reason for Visit Reason Comments Med Refill Encounter Details Date Type Department Care Team Description 04/08/2019 Office Visit Mal Trotter Toña Tejada Hypothyroidism, unspecified type (Primary Dx); [address] M, ANYI MORELOS Colon cancer screening; [place], [place] [address] [facility] Screening mammogram, encounter for [id number] [place] [id number] Social History Tobacco Use Types Packs/Day Years Used Date Former Smoker Smokeless Tobacco: Never Used Alcohol Use Standard Drinks/Week Comments Yes 0 (1 standard drink = 0.6 oz pure alcoho l) Sex Assigned at Date Recorded Not on file documented as of this encounter Last Filed Vital Signs Vital Sign Reading Time Taken Comments Blood Pressure 120/82 04/08/2019 2:39 PM CDT Pulse 92 04/08/2019 2:39 PM CDT Temperature 35.6 ??C (96.1 ??F) 04/08/2019 2:39 PM CDT Respiratory Rate 16 04/08/2019 2:39 PM CDT Oxygen Saturation 97% 04/08/2019 2:39 PM CDT Inhaled Oxygen Concentration - - Weight 78.6 kg (173 lb 4.5 oz) 04/08/2019 2:39 PM CDT Height 162 cm (5' 3.78) 04/08/2019 2:39 PM CDT Body Mass Index 29.95 04/08/2019 2:39 PM CDT documented in this encounter Patient Instructions Patient InstructionsChapril Tejada APRN, CNP - 04/08/2019 2:40 PM CDT Will call with the lab results Mammogram, call [facility], schedule documented in this encounter Progress Notes Toña Tejada APRN, CNP - 04/08/2019 2:40 PM CDT Estab Patient Visit Subjective Patient ID: Genesis Barry is a 59 y.o. female presenting for the following concerns. Chief Complaint Patient presents with ??? Med Refill HPI: The patient is a pleasant 59-year-old female presenting ambulatory to the clinical setting today to have her Synthroid renewed and have a TSH drawn. The patient was diagnosed with hypothyroidism about 5 years ago, and has been on a stable dose of Synthroid 50 mcg daily since. The patient reports she takes the levothyroxine 50 mcg every morning, on an empty stomach, 30 minutes before eating. The patient's last TSH on 03/04/2018 was 4.20. The patient reports overall she is feeling fantastic. The patient is due for a mammogram and likely due for colon cancer screening. Her last mammogram wason 03/22/2015. The patient reports she had a colonoscopy in ?[facility] in [place], with no polyps removed, and is likely due for colon cancer screening. No personal nor family history of colon cancer. ROS: BREASTS: The patient's last mammogram was in 03/22/2015. ENDOCRINOLOGY: See HPI. The patient was diagnosed with hypothyroidism about 5 years ago and has beenon a stable dose of Synthroid 50 mcg daily since. GASTROINTESTINAL: The patient reports her IBS symptoms have been under control. She reports she was on a celiac free diet x 2 weeks at the beginning of the year, with improvement in her IBS symptom, and suprisingly sustained improvement despite resuming gluten. PSYCHIATRIC: See HPI. The patient has a history of anxiety and depression is currently on Cymbalta 60 mg daily with good control of her symptoms. The following portions of the patient's chart were reviewed in this encounter and updated as appropriate: Tobacco Allergies Meds Problems Med Hx Surg Hx Fam Hx Objective Visit Vitals BP 120/82 (BP Location: Left arm, Patient Position: Sitting) Pulse 92 Temp (!) 35.6 ??C (96.1 ??F) (Temporal) Resp 16 Ht 1.62 m (5' 3.78) Wt 78.6 kg (173 lb 4.5 oz) SpO2 97% BMI 29.95 kg/m?? Smoking Status Former Smoker BSA 1.88 m?? GENERAL: The patient is alert, orientated, and in no apparent distress. DIAGNOSTICS: TSH, results pending at the time of this dictation. Assessment/Plan Genesis was seen today for med refill. Diagnoses and all orders for this visit: Hypothyroidism, unspecified type (Primary) - TSH; Future - levothyroxine (SYNTHROID, LEVOTHROID) 50 MCG tablet; Take 1 tablet (50 mcg total) by mouth 1 (one)time each day Colon cancer screening - Cologuard Screening mammogram, encounter for - Mammogram breast screening bilateral; Future - Mammogram breast screening bilateral Discussed the plan of care with the patient. Renewed Synthroid 50 mcg daily x1 year. The patient is agreeable to proceed with a bilateral screening mammogram at [facility], and will call to schedule an appointment. She was agreeable to proceed with colon cancer screening; therefore, Cologuard testing was ordered. The patient will be notified of her TSH results. The patient agrees and understands this plan of care. Toña Tejada APRN, CNP documented in this encounter Plan of Treatment Not on filedocumented as of this encounter Procedures Procedure Name Priority Date/Time Associated Diagnosis Comme nts COLOGUARD Routine 05/02/2019 12:15 PM Colon cancer Results for this CDT screening procedure are i n the results section . documented in this encounter Results Cologuard (05/02/2019 12:15 PM CDT) [facility] gist Method Time Signature Cologuard Negative Not Applicable EXACT result [employer] Comment: A negative result indicates a low likeli sheets that a colorectal cancer (CRC) or an advanced adenoma (adenomatous polyps with more advanced pre-malignant features) is present. The chance that a person wit h a negative Cologuard test has a colore ctal cancer is less than 1 in 1500 (negative predictive value >99.9%) or has an advanced adenoma is less than 5.3% (negative predictive value 94.7%). These savage a are based on a prospective cross-secti onal screening study of 10,000 individuals at average risk for colorectal cancer who were screened with both Cologuard and colonoscopy. (Allen Pacheco al, N Eng l J Med 2014;370(14):0781-6703) COLOGUAR D RE-SCREENING RECOMMENDATION: Periodic routine colorectal cancer screening is an important part of preventive healthcare for asymptomatic persons at average risk for colorectal cancer. Following a nega tive Cologuard result, the [employer] [employer] and U.S. Multi-Society Task Force screening guidelines recommend a Cologuard re-screening interval of 3 years. References: [place] ety (ACS). Colorectal cancer prevention and early detection. [place], [place]: [employer]; [updated 2015Jan 26]. https://www.cancer.org/cancer/colon-rect al-cancer/mmqihbyuc-dviaimzno-tjjfvlh/ac s-recommendations.html. Accessed June 04, 2018; Lion DK, Bryan ROMAN, Vpiul ThorntonK, Colorectal Cancer Screening: Recommendations for Physicians and Patients from th e U.S. Multi-Society Task Force on Color ectal Cancer Screening, Am J Gastroenterology 2017; 112:3584-7517. Test Type: Composite algorithmic analysi s of stool DNA-biomarkers with hemoglobin immunoassay. ??Quantitative values of individual biomarkers are not reportable and are not associated with individual biomarker result reference ranges. Precautions and Limitations: Cologuard i s intended for colorectal cancer screening of adults of either sex, 50 years or older, who are at typical average-risk for colorectal cancer. A negative Cologuard test result does not guarantee the abse nce of co lorectal cancer or advanced adenoma (pre -cancer). Patients with a negative Cologuard test result should be advised to continue participating in a colorectal cancer screening program. Cologuard may produ ce a positive result, even though a colo noscopy may not find colorectal cancer or precancerous polyps. The performance of Cologuard has been established in a cross sectional study (i.e., single point in time). Performance has not been evaluat ed in adults who have been previously tested with Cologuard or in patients less than 50 years of age. Cologuard has been approved for use by the U.S. FDA. Cologua rd performance data in a 10,000 patient pivotal study using colonoscopy as the reference method can be accessed at the following location: www.ChipX.Placester/results. Additional de scription of the Cologuard test process, warnings and precautions can be found at www.cologuardtest.com. Rx Only. [facility], [address] [place], [address], , Fercho wolff Principal Electrical Engineer, KERRI PETTIT, Ph.D., [facility], [place] NO: [id number] Specimen Anatomical Collection Method Collection Time Receive d Time (Source) Location / / Volume Laterality Stool 05/02/2019 12:15 05/03/2019 6:50 PM CDT PM CDT Toña Tejada APRN, INFORMATION ASSOC LAB BODY FLUIDS AND STOOL S ORDERABLES Performing Organization Address City/State/ZIP Code Phon e Number [facility], [address] [place] [address] [facility] [address] TSH (04/08/2019 3:14 PM CDT) athologist Signature TSH, Sensitive 3.36 0.46 - 04/08/2019 [facility] 4.68 mIU/L 6:52 PM CDT CENTER [...] Laterality Blood (Blood, 04/08/2019 3:14 PM 04/08/20 19 6:01 Venous) CDT PM CDT Toña Tejada APRN, CNP LAB BLOOD ORDERABLES Performing Organization Address City/State/ZIP Code Phon e Number [facility] [address] [place] [address] documented in this encounter Visit Diagnoses Diagnosis Hypothyroidism, unspecified type - Prima ry Colon cancer screening Special screening for malignant neoplasm s, colon Screening mammogram, encounter for documented in this encounter Care Teams Irrigation System Installer Relationship Specialty Start Date End Date Toña Tejada APRN, INFORMATION ASSOC PCP - General Family Medicine 01/06/19 06/06/[address] [place] [phone] documented as of this encounter
--- OUTSIDE RECORDS SUMMARY | 2022-07-14 08:14 | XMS_ITS | Encounter Summary ---
:1960 Author Organization [employer] Address [address] [place] [address] Care Team Providers Name Role Phone Toña Tejada APRN, INTERNAL MEDICINE NURSE PRACTITIONER Primary Care Provider [phone] Encounter Details Date Type Department Care Team Description 04/23/2020 Lab [place] Diabetes mellitus screening; [address] [address] Screening cholesterol level; [place], [place] [address] Hypothyroidism, unspecified type; [phone] Screening for d eficiency anemia Social History [...] Associated Diagnosis Comme nts FASTING ? Routine 04/23/2020 12:21 PM Results for this CDT procedure are i n the results section. CBC BRANCH OFFICE Routine 04/23/2020 12:21 PM Res ults for this W/DIFF CDT procedure are i n the results section. HEMOCUE GLUCOSE Routine 04/23/2020 12:21 PM Resul ts for this CDT procedure are i n the results section. TSH Routine 04/23/2020 12:21 PM Hypothyroidism, Resul ts for this CDT unspecified type procedure a re in the results section. LIPID PANEL Routine 04/23/2020 12:21 PM Screening Results for this CDT cholesterol level procedure are in the results section. documented in this encounter Results Fasting ? (04/23/2020 12:21 PM CDT) P athologist Signature Fasting? No 04/23/2020 1:30 [facility] [place] Specimen Anatomical Collection Method Collection Time Receive d Time (Source) Location / / Volume Laterality 04/23/2020 12:21 04/23/2020 PM CDT 12:21 PM CDT Matthew Hopkins MD LAB BLOOD ORDERABLES Performing Organization Address City/State/ZIP Code Phon e Number [facility] [place] [address] [place] [address] HemoCue glucose (04/23/2020 12:21 PM CDT) P athologist Signature Glucose, Bld 72 70 - 100 04/23/2020 [facility] mg/dL 1:30 PM [facility] [place] Comment: . Specimen Anatomical Collection Method Collection Time Receive d Time (Source) Location / / Volume Laterality 04/23/2020 12:21 04/23/2020 PM CDT 12:21 PM CDT Matthew Hopkins MD LAB BLOOD ORDERABLES Performing Organization Address City/State/ZIP Code Phon e Number [facility] [place] [address] [place] [address] (ABNORMAL) CBC Branch Off w/Diff (04/23/2020 12:21 PM CDT) [facility] Method Time Signature WBC 6.0 3.5 - 10.5 04/23/2020 [facility] K/uL 1:30 PM [facility] [place] RBC 4.54 3.90 - 04/23/2020 [facility] 5.00 M/uL 1:30 PM [facility] [place] Hemoglobin 14.7 12.0 - 04/23/2020 [facility] 15.5 g/dL 1:30 PM [facility] [place] Hematocrit 43.0 35.0 - 04/23/2020 [facility] 44.0 % 1:30 PM [facility] [place] Platelets 290 150 - 450 04/23/2020 [facility] K/uL 1:30 PM [facility] [place] MCV 94.7 81.6 - 04/23/2020 [facility] 98.3 fL 1:30 PM [facility] [place] MCH 32.4 (H) 26.0 - 04/23/2020 [facility] 32.0 pg 1:30 PM [facility] [place] MCHC 34.2 32.0 - 04/23/2020 [facility] 36.0 g/dL 1:30 PM [facility] [place] RDW 12.2 11.9 - 04/23/2020 [facility] 15.5 % 1:30 PM [facility]T [place] Lymphocytes % 32.9 % 04/23/2020 [facility] 1:30 PM [facility] [place] Mid-size Cells 7.5 % 04/23/2020 [facility] 1:30 PM [facility] [place] Granulocytes/Tung 59.6 % 04/23/2020 [facility] trophils 1:30 PM [facility] [place] Lymphocytes 2.0 0.9 - 2.9 04/23/2020 [facility] Absolute K/uL 1:30 PM [facility] [place] MIDS Absolute 0.5 0.4 - 1.5 04/23/2020 [facility] K/uL 1:30 PM [facility] [place] Granulocytes/Tung 3.5 1.7 - 7.0 04/23/2020 [facility] trophils K/uL 1:30 PM CDT [place] Absolute Specimen Anatomical Collection Method Collection Time Receive d Time (Source) Location / / Volume Laterality 04/23/2020 12:21 04/23/2020 PM CDT 12:21 PM CDT D. Avery Hopkins MD LAB BLOOD ORDERABLES Performing Organization Address City/State/ZIP Code Phon e Number [facility] [place] [address] [place] [address] TSH (04/23/2020 12:21 PM CDT) athologist Signature [...] Address City/State/ZIP Code Phon e Number [facility] [address] [place] [address] (ABNORMAL) Lipid panel (04/23/2020 12:21 PM CDT) P athologist Signature Cholesterol 331 (A) 0 - 199 04/24/2020 [facility] mg/dL 3:03 PM CDT [facility] Comment: Recommended by National Cholesterol Education Program (ATP III) -------- Cholesterol Ranges -------- <200 ? Desirable 200-239 ? Borderline high >=240 ? High Triglycerides 789 (A) 0 - 149 mg/dL 04/24/2020 3:[address] [facility] Comment: -------- TRIG Ranges -------- <150 ?Normal 150-199 ? Borderline high 200-499 ? High >=500 ? Very high HDL 40 40 - 60 mg/dL 04/24/2020 3:03 PM CDT [facility] Comment: -------- HDL Ranges -------- <40 ?Low 40-59 ?Normal >=60 ? Optimal LDL Calculated see below 0 - 99 mg/dL 04/24/2020 3:[address] [facility] Comment: -------- LDL Ranges -------- <100 ? Optimal 100-129 ?Near optimal/above op timal 130-159 ?Borderline high 160-189 ?High >=190 ?Very high Trig >400, calculated LDL invalid. Fasting? No 04/23/2020 1:[address] [facility] Comment: Provider ok with patient not fasting. Specimen Anatomical Collection Method Collection Time Receive d Time (Source) Location / / Volume Laterality Blood 04/23/2020 12:21 04/24/2020 1:16 PM CDT PM CDT D. Avery Hopkins MD LAB BLOOD ORDERABLES Performing Organization Address City/State/ZIP Code Phon e Number [facility] [address] [place] [address] documented in this encounter Visit Diagnoses Diagnosis Diabetes mellitus screening Screening for diabetes mellitus Screening cholesterol level Screening for lipoid disorders Hypothyroidism, unspecified type Screening for deficiency anemia Screening for other and unspecified defi ciency anemia documented in this encounter Care Teams Swing Frame Grinder Operator Relationship Specialty Start Date End Date Toña Tejada APRN, INTERNAL MEDICINE NURSE PRACTITIONER PCP - General Family Medicine 01/06/19 06/06/[address] [place] [id number] documented as of this encounter
--- OUTSIDE RECORDS SUMMARY | 2022-07-14 08:14 | XMS_ITS | Encounter Summary ---
:1960 Author Organization [facility] Address [address] [place] [address] Care Team Providers Name Role Phone None, Pcp Primary Care Provider Unavailable Reason for Visit Reason Onset Date Comments Referral 05/27/2021 Encounter Details Date Type Department Care Team Description 05/27/2021 Telephone [place] Matthew Hopkins MD Referral [address] [place], [place] [address] [place], [place] [phone] (Wo rk) Social History Tobacco Use Types Packs/Day Years Used Date Former Smoker Smokeless Tobacco: Never Used Alcohol Use Standard Drinks/Week Comments Yes 0 (1 standard drink = 0.6 oz pure alcoho l) Sex Assigned at Date Recorded Not on file documented as of this encounter Miscellaneous Notes Telephone Encounter - Shayla Gutierrez - 05/27/2021 10:30 AM CDT Message relayed. Pt said it has been scheduled in [place] for 06/11/21 at 2:00pm. Telephone Encounter - Cherelle Dempsey RN - 05/27/2021 10:07 AM CDT Spoke to the oral surgeon they did receive the referral and will call her to schedule. LMTC with patient. Telephone Encounter - Elizabeth Mishra - 05/27/2021 9:51 AM CDT Patient was to be referred to an oral surgeon and has not heard from them. You can reach her at [phone]. documented in this encounter Plan of Treatment Not on filedocumented as of this encounter Visit Diagnoses Not on filedocumented in this encounter Care Teams Electrical Technician Instructor Relationship Specialty Start Date End Date None, Pcp PCP - General Carpenter Form 06/26/20 06/02/21 [address] [place] [address] documented as of this encounter
--- OUTSIDE RECORDS SUMMARY | 2022-07-14 08:14 | XMS_ITS | Encounter Summary ---
:[address] [facility] Address [address] [place] [address] Care Team Providers Name Role Phone None, Pcp Primary Care Provider Unavailable Encounter Details Date Type Department Care Team Description 10/17/2020 Telephone [place] None, Pcp [address] [place], [place] [address] [place] [address] Social History Tobacco Use Types Packs/Day Years Used Date Former Smoker Smokeless Tobacco: Never Used Alcohol Use Standard Drinks/Week Comments Yes 0 (1 standard drink = 0.6 oz pure alcoho l) Sex Assigned at Date Recorded Not on file documented as of this encounter Miscellaneous Notes Telephone Encounter - Roxy Leggett LPN - 10/17/2020 10:45 AM CST Immunization update FICIAL FLOWERS STARCHER documented in this encounter Plan of Treatment Not on filedocumented as of this encounter Visit Diagnoses Not on filedocumented in this encounter Care Teams Spray Booth Operator Relationship Specialty Start Date End Date None, Pcp PCP - General Five Piece Expansion Maker Hand 06/26/20 06/02/21 [address] [place] [address] documented as of this encounter
--- OUTSIDE RECORDS SUMMARY | 2022-07-14 08:14 | XMS_ITS | Encounter Summary ---
:1960 Author Organization [facility] Address [address] [place] [address] Care Team Providers Name Role Phone None, Pcp Primary Care Provider Unavailable Reason for Referral Imaging (Routine) - Closed Specialty Diagnoses / Procedures Referred By Contact Refer red To Contact Radiology Diagnoses Visit for screening mammogram Matthew Hopkins MD Procedures Mammogram breast screening bilateral [address] [place] [address] Referral ID Status Reason Start Date Expiration Date Visits Requ ested Visits Authorized [id number] Closed 05/06/2021 05/06/2022 1 1 Reason for Visit Reason Comments Medication Visit Encounter Details Date Type Department Care Team Description 05/06/2021 Office Visit Matthew Yeh Visit for screening mammogra m (Primary Dx); [address] [place] Encounter for wellness examination in ad ult; [place], [place] [address] [address] Mixed hyperlipidemia; [phone] [place] Hypothy[place], [place] [address] Social History Tobacco Use Types Packs/Day Years Used Date Former Smoker Smokeless Tobacco: Never Used Alcohol Use Standard Drinks/Week Comments Yes 0 (1 standard drink = 0.6 oz pure alcoho l) Sex Assigned at Date Recorded Not on file documented as of this encounter Last Filed Vital Signs Vital Sign Reading Time Taken Comments Blood Pressure 122/88 05/06/2021 10:21 AM CDT Pulse 90 05/06/2021 10:21 AM CDT Temperature 35.7 ??C (96.3 ??F) 05/06/2021 10:21 AM CDT Respiratory Rate 16 05/06/2021 10:21 AM CDT Oxygen Saturation 98% 05/06/2021 10:21 AM CDT Inhaled Oxygen Concentration - - Weight 74.4 kg (164 lb) 05/06/2021 10:21 AM CDT Height 160 cm (5' 3) 05/06/2021 10:21 AM CDT Body Mass Index 29.05 05/06/2021 10:21 AM CDT documented in this encounter Progress Notes Matthew Hopkins MD - 05/06/2021 10:20 AM CDT Estab Patient Visit Subjective Patient ID: Genesis Barry is a 61 y.o. female. HPI the patient is here today for her annual wellness evaluation medication review medication renewal on laboratory tests reveal. The patient has not had anything in particular happened to her this last years for ER visits hospitalizations she has not contracted COVID-19 has been otherwise medically healthy. HOWEVER she has had a life event change in that she and her both still currently andplan to stay have decided to separate to different homes. He is going to stay in their home located on [address] in [facility] and she has purchased a [employer] in [facility] that she will be staying at. She states that her stress levels are much much better and that her family including her 3 kids and grandchildren are acceptant and that she and her have a good relationship at this time. SMOKING no ALCOHOL minimal social though she may have up to 2 glasses of red wine daily NKA MEDICAL HISTORY Hypothyroidism organ failure Depressive disorder stable Periodic anxiety Overweight calorie induced IBS PAST SURGICAL HISTORY NONE PAST HOSPITALIZATIONS NONE OTHER THAN OF CHILDREN SOCIAL HISTORY she has been for 36 years with a recent separation physically from her . She is currently working in [facility]. Her has applied for Social Security as he is turned 63. FAMILY HISTORY her father at age 80 from liver cirrhosis her mother is still living at age 85 history of thyroid issues history has a total 2 sisters living and in good health she had a total of 2brothers but 1 brother at age 35 after having a seizure that occurred while he was taking a shower IMMUNIZATIONS she has had the COVID-19 vaccine she gets a annual flu shot she is up-to-date with hertetanus status her shingles vaccine we discussed the pneumonia shots but will wait for a number of years before we give her the first 1 and she has no risk factors MAMMOGRAM she is due for this year and this will be scheduled at [facility] COLON CANCER SCREENING she had a Cologuard test 2 years ago that was normal she will have that done again in 1 years time We have discussed the routine value of eye examinations and dental checkups Review of Systems her current review of systems shows that her depression and anxiety have much improved after the separation between herself and her . Her symptoms of IBS are fairly minimal and tolerable at this time with probiotics and less stress inher life She has had no fevers chills coughs or cold no shortness of breath or chest pain or palpitations no unusual weight loss or weight changes no significant issues with diarrhea constipation blood in the stool Minimal issues with loss of urine if she coughs or sneezes no vaginal discharges or vaginal bleeding No significant aches or pains skin lesions lumps or bumps or fluid retention LIP LESION patient states that within the last year she has developed this lip lesion right lower lip area this time of a nuisance and bothers her and she winds up accidentally chewing on it in the nighttime and sometimes during the daytime and she feels that it may be affecting her speech just a little bit Objective Physical Exam she is alert she appears comfortable her vital signs show the following Blood pressure 122/88 Pulse 90 regular rate and rhythm Temp 96.3 Weight 164 pounds BMI is 29.1 O2 sats 98% room air at rest LIP on the bottom right portion of her inner lip there is an approximate 1 cm skin tag-like lesion there is no cancer is looking at all but just more of a chronic irritation from probably accidentally chewing on this portion of her lip over time almost like a callus. Her tongue is moist throat is clear dentition good shape Neck no adenopathy or thyromegaly or carotid bruits Lungs are clear without wheeze rales or rhonchi Cardiac is regular rate and rhythm without heart murmur Abdomen is soft not tender no hepatosplenomegaly or masses or hernias Extremities joints skin within relative normal limits Her laboratory test were reviewed her CBC chemistry 8 panel blood sugars were normal. Her TSH shows a little elevation so we will increase her Synthroid from 50 mcg/day up to 75 mcg/day Her lipid functions much improved from where it was before she currently takes 80 mg of Lipitor without side effects Assessment/Plan Diagnoses and all orders for this visit: Visit for screening mammogram - Mammogram breast screening bilateral; Future Encounter for wellness examination in adult Mixed hyperlipidemia - atorvastatin (Lipitor) 80 MG tablet; Take ONE a day for cholesterol Hypothyroidism, unspecified type - levothyroxine (SYNTHROID) 75 MCG tablet; Take one a day for thyroid The overall assessment is as stated above Plan at this time is for us to increase her Synthroid from 50 mcg up to 75 mcg/day She will continue all of her other medications as she is We placed a referral for her to get a mammogram We will refer to oral surgeon secondary to this lip lesion for further assessment and probable removal. Roxy Leggett LPN - 05/06/2021 10:20 AM CDT Images from the original note were not included. Nurse Note [facility] brand sales consultant 4.8 (73) ?? Oral surgeon [address] ?? In [facility] ?? Oral Surgery Care 3.7 (31) ?? Oral surgeon [address] ?? [facility] 4.3 (72) ?? Oral surgeon [address] ?? Matthew Hopkins MD - 05/06/2021 10:20 AM CDT I have placed a referral for Genesis to be seen by an oral surgeon. Please copy this referral and assist with its fax into the appropriate location. After this is been faxed let Genesis know that the referral has been sent and hopefully she hears from them within the next 7 to 10 days. If she doesn't she should call us to let us know. Roxy Leggett LPN - 05/06/2021 10:20 AM CDT Nurse Note Please fax the dental referral Shayla Gutierrez - 05/06/2021 10:20 AM CDT Referral and face sheet faxed to [facility] brand sales consultant at [address] [facility] in [place]. documented in this encounter Plan of Treatment Scheduled Orders Name Type Priority Associated Diagnoses Order S chedule Mammogram breast Imaging Routine Visit for screening Expe cted: 05/06/2021, screening bilateral mammogram Expires: 05/06/2022 documented as of this encounter Visit Diagnoses Diagnosis Visit for screening mammogram - Primary Encounter for wellness examination in ad ult Mixed hyperlipidemia Hypothyroidism, unspecified type documented in this encounter Care Teams Central Office Technician Relationship Specialty Start Date End Date None, Pcp PCP - General Mobile Home Set Up Person 06/26/20 06/02/[address] [place] [phone] documented as of this encounter
--- OUTSIDE RECORDS SUMMARY | 2022-07-14 08:14 | XMS_ITS | Encounter Summary ---
:1960 Author Organization [facility] Address [address] [place] [address] Care Team Providers Name Role Phone None, Pcp Primary Care Provider Unavailable Encounter Details Date Type Department Care Team Description 01/04/2021 Immunization Family Medicine [address] [place] [address] Social History Tobacco Use Types Packs/Day Years [...] on filedocumented in this encounter Care Teams Chief Embalmer Relationship Specialty Start Date End Date None, Pcp PCP - General Paper Stripper 06/26/20 06/02/21 [address] [place] [address] documented as of this encounter
--- OUTSIDE RECORDS SUMMARY | 2022-07-14 08:14 | XMS_ITS | Clinical Summary ---
:1960 Author Organization [facility] Address [address] [place] [address] Care Team Providers Name Role Phone Matthew Hopkins MD Primary Care Provider Allergies No known active allergies Medications Medication Sig Dispensed Refills Start Date End Date Status atorvastatin Take ONE a day 90 tablet 3 06/03/2022 A ctive (Lipitor) 80 MG for cholesterol tabletIndications: Mixed hyperlipidemia DULoxetine TAKE 1 CAPSULE(60 90 capsule 3 06/03/2022 Active (CYMBALTA) [address] MG) BY MOUTH 1 capsuleIndications: TIME EACH DAY Anxiety, Depression, unspecified depression type levothyroxine Take one a day 90 tablet 3 06/03/2022 Active (SYNTHROID) 75 MCG for thyroid tabletIndications: Hypothyroidism, unspecified type ondansetron (Zofran) May take one tab 4 tablet 1 07/10/2022 Active 4 MG around one hour tabletIndications: before scheduled Nausea procedure for nausea. May repeat every 4-6 hours IF needed polyethylene glycol Please follow the 4000 mL 0 06/30/2022 0 07/01/2022 (GoLYTELY) 236 g directions on solutionIndications: your [facility] Encounter for colonoscopy prep screening sheet. colonoscopy Active Problems Problem Noted Date Overweight (BMI 25.0-29.9) 06/30/2022 Sleep difficulties 08/11/2018 Alcohol use disorder, mild, abuse 03/04/2018 Anxiety 03/04/2018 Major depressive disorder, single episode 03/04/2018 Irritable bowel syndrome without diarrhea 01/03/2016 Unspecified hypothyroidism 01/04/2015 Encounters Date Type Specialty Care Team Description 07/09/2022 Telephone Family Medicine Matthew Hopkins, anti-n ausea Rx 06/30/2022 Consult Family Medicine Matthew Hopkins, Encoun ter for screening MD colonoscopy (Pr imary Dx) 06/16/2022 Telephone Family Medicine Matthew Hopkins, referr al rick CM 06/04/2022 Orders Only Family Matthew Chappell MD 06/02/2022 Lab Family Medicine Screening ch olesterol level; Hypothyroidism, unspecified type; Diabetes mellit us screening; Screening for d eficiency anemia 06/02/2022 Office Visit Family Matthew Chappell, Carlos ter for wellness examination in adult (Primary Dx); Screening for d eficiency anemia; Diabetes mellit us screening; Hypothyroidism, unspecified type; Screening minesh sterol level; Anxiety; Depression, uns pecified depression type; Encounter for s creening colonoscopy; Visit for scree roshan mammogram; Mixed hyperlipi demia 05/21/2022 Refill Family Medicine Matthew Hopkins, Anxiet y; Depression, uns pecified depression type from Last 3 Months Immunizations Name Administration Dates Next Due COVID-19, mRNA, LNP-S, PF, 30mcg/0.3mL 11/18/2021, , 01/04/2021 dose Pfizer Pneumococcal Conjugate PCV20 06/02/2022 Tdap 04/23/2020 Zoster Recombinant 10/11/2020, 07/06/2020 Family History Medical History Relation Comments Other Brother 2 OF GRAND MAL SI EZURE Scoliosis Father Relation Status Comments Brother 1 Alive Brother 2 Father Mother Alive Sister 1 Alive Sister 2 Alive Social History Tobacco Use Types Packs/Day Years Used Date Former Smoker Smokeless Tobacco: Never Used Alcohol Use Standard Drinks/Week Comments Yes 0 (1 standard drink = 0.6 oz pure alcoho l) Sex Assigned at Date Recorded Not on file Last Filed Vital Signs Vital Sign Reading Time Taken Comments Blood Pressure 120/52 06/30/2022 10:34 AM CDT Pulse 92 06/30/2022 10:34 AM CDT Temperature 37.2 ??C (99 ??F) 06/30/2022 10:34 AM CDT Respiratory Rate 16 06/30/2022 10:34 AM CDT Oxygen Saturation 98% 06/30/2022 10:34 AM CDT Inhaled Oxygen Concentration - - Weight 74.4 kg (164 lb) 06/30/2022 10:34 AM CDT Height 160 cm (5' 2.99) 06/30/2022 10:34 AM CDT Body Mass Index 29.06 06/30/2022 10:34 AM CDT Plan of Treatment Health Maintenance Due Date Last Done Comments CT Colonography 1960 Sigmoidoscopy 1960 iFOBT 1960 Pap Smear 03/13/2018 03/13/2015 Mammogram 07/09/2021 07/09/2020 COVID-19 Vaccine (4 - Booster 03/18/2022 11/18/2021, for Pfizer series) 01/25/2021, 01/04/2021 FIT-DNA 05/02/2022 05/02/2019 Colonoscopy 05/03/2022 05/03/2019 Colorectal Cancer Screening 05/03/2022 Zoster Vaccines Completed 10/11/2020, 07/06/2020 Pneumococcal Vaccine: Aged Out 06/02/2022, No longer eligible based Pediatrics (0 to 5 Years) and 06/02/2022 on patient's age to At-Risk Patients (6 to 64 comple te this topic Years) HPV Vaccines Aged Out No longer eligib le based on patient's age to complete this to pic Procedures Procedure Name Priority Date/Time Associated Diagnosis Comme nts GLOMERULAR Routine 06/02/2022 9:33 AM Diabetes mellitus Resu lts for this FILTRATION RATE CDT screening procedure ar e in the results section. CBC BRANCH OFFICE Routine 06/02/2022 9:33 AM Resu lts for this W/DIFF CDT procedure are i n the results section. BASIC METABOLIC Routine 06/02/2022 [...] level procedure are in the results section. from Last 3 Months Results Glomerular filtration rate (GFR) (06/02/2022 9:33 AM CDT) P athologist Signature GFR >60 06/02/2022 [facility] 2:16 PM CDT [facility] >60 06/02/2022 [facility] Iraqi GFR 2:16 PM CDT [facility] Comment: GFR calculated from serum creatinine v alue Chronic Kidney Disease less than 60 mL/m in/1.73 m2 Kidney Failure less than 15 mL/min/1.73 m2 IDMS-Traceable MDRD Study Equation used. Specimen Anatomical Collection Method Collection Time Receive d Time (Source) Location / / Volume Laterality 06/02/2022 9:33 AM 9:33 CDT AM CDT D. Avery Hopkins MD LAB BLOOD ORDERABLES Performing Organization Address City/State/ZIP Code Phon e Number [facility] [address] [place] [address] CBC Branch Off w/Diff (06/02/2022 9:33 AM CDT) P athologist Signature WBC 4.6 3.5 - 10.5 06/02/2022 [facility] K/uL 10:26 AM CDT [place] RBC 4.42 3.90 - 06/02/2022 [facility] 5.00 M/uL 10:26 AM CDT [place] Hemoglobin 14.0 12.0 - 06/02/2022 [facility] 15.5 g/dL 10:26 AM CDT [place] Hematocrit 43.0 35.0 - 06/02/2022 [facility] 44.0 % 10:26 AM CDT [place] Platelets 315 150 - 450 06/02/2022 [facility] K/uL 10:26 AM CDT [place] MCV 97.3 81.6 - 06/02/2022 [facility] 98.3 fL 10:26 AM CDT [place] MCH 31.7 26.0 - 06/02/2022 [facility] 32.0 pg 10:26 AM CDT [place] MCHC 32.6 32.0 - 06/02/2022 [facility] 36.0 g/dL 10:26 AM CDT [place] RDW 12.6 11.9 - 06/02/2022 [facility] 15.5 % 10:26 AM CDT [place] Lymphocytes % 43.7 % 06/02/2022 [facility] 10:26 AM CDT [place] Mid-size Cells 8.7 % 06/02/2022 [facility] [place] 10:26 AM CDT [place] Granulocytes/Tung 47.6 % 06/02/2022 [facility] [place] trophils 10:26 AM CDT [place] Lymphocytes 2.0 0.9 - 2.9 06/02/2022 [facility] [place] Absolute K/uL 10:26 AM CDT [place] MIDS Absolute 0.4 0.4 - 1.5 06/02/2022 [facility] [place] K/uL 10:26 AM CDT [place] Granulocytes/Tung 2.2 1.7 - 7.0 06/02/2022 [facility] [place] trophils K/uL 10:26 AM CDT [place] Absolute Specimen Anatomical Collection Method Collection Time Receive d Time (Source) Location / / Volume Laterality 06/02/2022 9:33 AM 2 9:36 CDT AM CDT Matthew Hopkins MD LAB BLOOD ORDERABLES Performing Organization Address City/[facility] Code Phon e Number [facility] [place] [address] [place] [address] TSH (06/02/2022 9:33 AM CDT) athologist Signature [...] Organization Address City/State/ZIP Code Phon e Number [facility] [address] [place] [address] (ABNORMAL) Lipid panel (06/02/2022 9:33 AM CDT) athologist Signature Cholesterol 316 (H) 0 - 199 06/02/2022 [facility] mg/dL 2:16 PM [facility] Comment: Recommended by National Cholesterol Education Program (ATP III) -------- Cholesterol Ranges -------- <200 ?Desirable 200-239 ? Borderline high >=240 ? High Triglycerides 741 (H) 0 - 149 mg/dL 06/02/2022 2:16 PM T [facility] Comment: -------- TRIG Ranges -------- <150 ?Normal 150-199 ? Borderline high 200-499 ? High >=500 ? Very high HDL 41 40 - 250 mg/dL 06/02/2022 2:16 PM CDT [facility] Comment: -------- HDL Ranges -------- <40 ?Low 40-59 ?Normal >=60 ? Optimal LDL Calculated see below 0 - 99 mg/dL 06/02/2022 2:16 PM T [facility] Comment: Trig >400, calculated LDL invalid. -------- LDL Ranges -------- <100 ? Optimal 100-129 ?Near optimal/above op timal 130-159 ?Borderline high 160-189 ?High >=190 ?Very high Fasting? Yes 06/02/2022 9:36 AM T [facility] Specimen Anatomical Collection Method Collection Time Receive d Time (Source) Location / / Volume Laterality Blood 06/02/2022 9:33 AM 2 CDT 12:39 PM CDT Matthew Hopkins MD LAB BLOOD ORDERABLES Performing Organization Address City/[facility]/ZIP Code Phon e Number [facility] [address] [place] [address] (ABNORMAL) Basic metabolic panel (06/02/2022 9:33 AM CDT) Analysis Performed At [facility] Time Signature Sodium 141 135 - 145 06/02/2022 [facility] mEq/L 2:16 PM [facility] Potassium 5.0 3.5 - 5.1 06/02/2022 [facility] mEq/L 2:16 PM [facility] Chloride 102 98 - 107 06/02/2022 [facility] mEq/L 2:16 PM [facility] CO2 28 22 - 29 06/02/2022 [facility] mmol/L 2:16 PM [facility] Creatinine 0.8 0.4 - 1.2 06/02/2022 [facility] mg/dL 2:16 PM [facility] BUN 10 5 - 25 06/02/2022 [facility] mg/dL 2:16 PM [facility] Glucose 114 (H) 70 - 100 06/02/2022 [facility] mg/dL 2:16 PM [facility] Calcium, 9.5 8.4 - 10.2 06/02/2022 [facility] Total,S mg/dL 2:16 PM [facility] Specimen Anatomical Collection Method Collection Time Receive d Time (Source) Location / / Volume Laterality Blood 06/02/2022 9:33 AM 2 CDT 12:39 PM CDT Matthew Hopkins MD LAB BLOOD ORDERABLES Performing Organization Address City/[facility]/ZIP Code Phon e Number [facility] [address] [place] [address] from Last 3 Months Insurance Payer Benefit Plan / Subscriber ID Effective Dates Phone Addre ss Type Group BCBS OF BCBS OF [id number] 2020-[place] [address] [address] [place] [address] Care Teams Circus Agent Relationship Specialty Start Date End Date Matthew Hopkins MD PCP - General 06/03/[address] [place] [address]
--- OUTSIDE RECORDS SUMMARY | 2022-07-14 08:14 | XMS_ITS | Encounter Summary ---
:1960 Author Organization [facility] Address [address] [place] [address] Care Team Providers Name Role Phone None, Pcp Primary Care Provider Unavailable Encounter Details Date Type Department Care Team Description 12/31/2020 Orders Only [place] Matthew Hopkins MD [address] [facility] [address] [facility] [address] [place], [place] [address] [place], [place] [phone] (Wo rk) Social History Tobacco Use Types [...] on filedocumented in this encounter Care Teams Spar Machine Operator Relationship Specialty Start Date End Date None, Pcp PCP - General Fieldwork Coordinator 06/26/20 06/02/21 [address] [place] [address] documented as of this encounter
--- OUTSIDE RECORDS SUMMARY | 2022-07-14 08:14 | XMS_ITS | Encounter Summary ---
:1960 Author Organization [facility] Address [address] [place] [address] Care Team Providers Name Role Phone Matthew Hopkins MD Primary Care Provider Reason for Visit Reason Comments Pre-op Exam DOS 10-10 Colonoscopy Encounter Details Date Type Department Care Team Description 06/30/2022 Consult Matthew Yeh, Encounter for screening [address] [address] colonoscopy (Primary Dx) [place], [place] [address] [phone] [place] [address] Social History Tobacco Use Types Packs/Day Years [...] Mass Index 29.06 06/30/2022 10:34 AM CDT documented in this encounter Progress Notes Matthew Hopkins MD - 06/30/2022 10:40 AM CDT Subjective Patient ID: Genesis Barry is a 62 y.o. female. HPI the patient is here today for a PRECOLONOSCOPY evaluation that will be done at the [facility] on 07/14/2022. COVID-19 she has not contracted as far as she knows and she has been immunized and boosted on 1 occasion. She has had no ER visits hospitalizations injuries accidents or illnesses in the last year. SMOKING no ALCOHOL occasionally she will have 1 or 2 glasses of red wine socially [facility] MED[facility] HISTORY Hypothyroidism Depressive disorder Periodic anxiety Overweight IBS Mild glucose intolerance Elevated cholesterol MEDICATIONS LIPITOR 80 mg 1 time daily Cymbalta 60 mg daily Levothyroxine 75 mcg daily SURGICAL HISTORY none HOSPITALIZATIONS none except for of children SOCIAL HISTORY she has been for 37+ years [facility] and she works full-time. Her is retired at age 64. She has 3 children and 5 grandchildren. FAMILY HISTORY her father age 88 from liver cirrhosis her mother is living at age 86 history ofthyroid problems. She has 2 sisters in good health and 2 brothers but 1 brother at age 35 afterhaving a seizure IMMUNIZATIONS she is up-to-date with her COVID 19 and we have certainly recommended annual vaccine this fall as well as the flu vaccine. She has had 1 pneumonia vaccination her tetanus status is good. She has had the new shingles vaccine. MAMMOGRAM SHE will be getting her mammogram this fall time at the [facility]. COLON CANCER SCREENING she had a negative Cologuard test 3 years ago and she will now be getting a colonoscopy. PAP SMEARS her last one was more than 5 years ago and she has not had any history of any abnormals. Review of Systems her current review of systems partly negative rending significant regarding HEENT. No fevers chills coughs or colds no shortness of breath or chest pain no palpitations. No nausea or throwing up no weight changes or appetite disturbance. She does have some issues with periodic abdominal cramps and loose stools and she has been diagnosed with IBS. No history of any blood in her stool or otherwise change of bowel patterns. No difficulty passing urine no vaginal discharges or bleeding. No unusual aches or pains lumps or bumps fluid retention skin sores or skin lesions Objective Physical Exam she is alert she appears comfortable her vital signs show the following Blood pressure 120/52 Pulse 90 regular rate rhythm Temp 99 Weight 164 pounds BMI is 29 weight 1 O2 sats 98% room air Ears are clear free of erythema cerumen Pupils equal reactive conjunctiva clear Tongue is moist throat is clear dentition good shape Neck no adenopathy no thyromegaly no carotid bruits no masses Lungs are clear without wheeze rales or rhonchi Cardiac is regular rate and rhythm without heart murmur Abdomen soft not tender no hepatosplenomegaly no masses no hernias Extremities joints and skin within normal limits No laboratory tests were needed Assessment/Plan Diagnoses and all orders for this visit: Encounter for screening colonoscopy - polyethylene glycol (GoLYTELY) 236 g solution; Please follow the directions on your [facility] [place] colonoscopy prep sheet. The overall assessment is encounter for screening colonoscopy and patient is is given SURGICAL CLEARANCE to have this procedure done. She has been given the colon prep sheet and a prescription for GoLytely prep was sent in to her pharmacy with instructions. documented in this encounter Plan of Treatment Not on filedocumented as of this encounter Visit Diagnoses Diagnosis Encounter for screening colonoscopy - Pr imary documented in this encounter Care Teams Capacity Management Specialist Relationship Specialty Start Date End Date Matthew Hopkins MD PCP - General 06/03/[address] [place] [address] documented as of this encounter
--- OUTSIDE RECORDS SUMMARY | 2022-07-14 08:14 | XMS_ITS | Encounter Summary ---
:1960 Author Organization [facility] Address [address] [place] [address] Care Team Providers Name Role Phone Matthew Hopkins MD Primary Care Provider Reason for Referral Consultation (Routine) - Authorized Specialty Diagnoses / Procedures Referred By Contact Refer red To Contact Diagnoses Encounter for screening colonoscopy Matthew Hopkins MD [facility] 17[address] [facility] [address] [phone] Referral ID Status Reason Start Date Expiration Date Visits V isits Requested Authorized [id number] Authorized 06/03/2022 06/03/2023 1 1 Consultation (Routine) - Authorized Specialty Diagnoses / Procedures Referred By Contact Refer red To Contact Diagnoses Visit for screening mammogram Matthew Hopkins MD [facility] [address] [phone] Referral ID Status Reason Start Date Expiration Date Visits V isits Requested Authorized [id number] Authorized 06/03/2022 06/03/2023 1 1 Reason for Visit Reason Comments Med Refill Encounter Details Date Type Department Care Team Description 06/02/2022 Office Visit Matthew Yeh Encounter for wellness exami nation in adult (Primary Dx); [address] MD [place] Screening for deficiency anemia; [place], [place] [address] Diabetes me llitus screening; [address] [place] Hypothyroidism, unspecified type; [phone] [place], Screening chol esterol level; [place] [address] Anxiety; [phone] Depression, uns pecified depression type; (Work) Encounter for screening colonoscopy; [phone] Visit for scree roshan mammogram; (Fax) Mixed hyperlipi demia Social History Tobacco Use Types Packs/Day Years Used Date Former Smoker Smokeless Tobacco: Never Used Alcohol Use Standard Drinks/Week Comments Yes 0 (1 standard drink = 0.6 oz pure alcoho l) Sex Assigned at Date Recorded Not on file documented as of this encounter Last Filed Vital Signs Vital Sign Reading Time Taken Comments Blood Pressure 116/84 06/02/2022 8:37 AM CDT Pulse 83 06/02/2022 8:37 AM CDT Temperature 36.7 ??C (98 ??F) 06/02/2022 8:37 AM CDT Respiratory Rate 18 06/02/2022 8:37 AM CDT Oxygen Saturation 99% 06/02/2022 8:37 AM CDT Inhaled Oxygen Concentration - - Weight 75.6 kg (166 lb 11.2 oz) 06/02/2022 8:37 AM CDT Height 159.8 cm (5' 2.91) 06/02/2022 8:37 AM CDT Body Mass Index 29.61 06/02/2022 8:37 AM CDT documented in this encounter Progress Notes DAakash Hopkins MD - 06/02/2022 8:40 AM CDT Subjective Patient ID: Genesis Barry is a 62 y.o. female. HPI the patient is here for her annual wellness evaluation. COVID-19 she has not contracted as far as she knows and she has been immunized and boosted on 1 occasion. Otherwise she said no ER visit hospitalizations injuries accidents or illnesses in the last year. SMOKING no ALCOHOL occasionally up to 2 glasses of red wine daily/social NKA MEDICAL HISTORY Hypothyroidism Depressive disorder Anxiety periodically Overweight IBS Glucose intolerance Significantly elevated cholesterol MEDICATIONS Lipitor 80 mg 1 daily that she knows this as she does not take but a couple times a month or so Cymbalta 60 mg 1 daily Levothyroxine 75 mcg daily SURGICAL HISTORY none HOSPITALIZATIONS none other than of children SOCIAL HISTORY patient been for 37+ years but she currently lives in a townhouse in [facility] where she also works full-time. Her is retired at age 64 and lives in [facility]. She has 3 children and 5 grandchildren. FAMILY HISTORY her father at age 88 from a liver cirrhosis her mother is still living age 86 history of thyroid issues. She has 2 sisters in good health and she had 2 brothers but 1 brother at age 35 after having a seizure that occurred while he was taking a shower IMMUNIZATIONS she is up-to-date with COVID-19 and will we recommend she get the new vaccine this fall time. We recommend the flu vaccination this fall as well. We updated and gave her her first pneumonia vaccine today her tetanus status is good. She has had the shingles vaccine the new updated version. MAMMOGRAM she is due for this and this will be arranged at the [facility] COLON CANCER SCREENING she last had a Cologuard test 3 years ago. We have highly recommended that she get the colonoscopy this year and she agrees to do so and will have it done at the [facility]. PAP SMEARS has been more than 5 years ago she is never had an abnormal 1. We did discuss the value of being updated and she would like to wait at this time but will consider next year. We discussed the value of routine eye examinations and dental checkups Review of Systems overall she feels good no fevers chills night sweats coughs or colds no shortness of breath chest pain palpitations no appetite disturbance no weight changes. No nausea or throwing up no constipation diarrhea hemorrhoids blood in the stool No vaginal discharges no significant hot flashes no problems passing her urine. No unusual aches or pains lumps or bumps fluid retention skin lesions Objective Physical Exam she is alert she appears comfortable her vital signs show the following Blood pressure 116/84 right Pulse 80 regular rate and rhythm Temp 98 Weight 166 pounds BMI is 29.6 O2 sats 99% Ears are clear free of erythema cerumen Pupils equal reactive conjunctiva clear Tongue is moist throat is clear dentition good shape Neck no adenopathy no thyromegaly no carotid bruits no masses Lungs are clear without wheeze rales or rhonchi Cardiac is regular rate and rhythm without heart murmur Abdomen soft nontender no masses no hepatosplenomegaly and no hernias Extremity strength skin within normal limits Appropriate laboratory test will be acquired Assessment/Plan Diagnoses and all orders for this visit: Encounter for wellness examination in adult Screening for deficiency anemia Diabetes mellitus screening - Basic metabolic panel; Future Hypothyroidism, unspecified type - TSH; Future - levothyroxine (SYNTHROID) 75 MCG tablet; Take one a day for thyroid Screening cholesterol level - Lipid panel; Future Anxiety - DULoxetine (CYMBALTA) [address] capsule; TAKE 1 CAPSULE(60 MG) BY MOUTH 1 TIME EACH DAY Depression, unspecified depression type - DULoxetine (CYMBALTA) [address] capsule; TAKE 1 CAPSULE(60 MG) BY MOUTH 1 TIME EACH DAY Encounter for screening colonoscopy - polyethylene glycol (GoLYTELY) 236 g solution; Please follow the directions on your [facility] colonoscopy prep sheet. - Ambulatory External Referral Visit for screening mammogram - Ambulatory External Referral Mixed hyperlipidemia - atorvastatin (Lipitor) 80 MG tablet; Take ONE a day for cholesterol Other orders - Pneumococcal Conjugate PCV20 (Prevnar 20) The overall assessment is as stated above and the plan at this time is appropriate laboratory tests renal medications schedule him for mammogram and colonoscopy both at the [facility]. Dora Downing RN - 06/02/2022 8:40 AM CDT Please fax per provider's direction. SSAT Dora Downing RN - 06/02/2022 8:40 AM CDT Please fax per provider's request. SSAT Dora Downing RN - 06/02/2022 8:40 AM CDT Please fax. Coco Waggoner - 06/02/2022 8:40 AM CDT Faxed referral to [facility] for mammogram screening. Faxed referral to [facility] for colonoscopy screening. Coco Waggoner - 06/02/2022 8:40 AM CDT Faxed referral to [facility] for mammogram. [facility]. documented in this encounter Plan of Treatment Scheduled Referrals Name Type Priority Associated Diagnoses Order S chedule Ambulatory External Outpatient Referral Routine Visit for scre ening Ordered: Referral mammogram 06/03/2022 Ambulatory External Outpatient Referral Routine Encounter for Ordered: Referral screening 06/03/2022 colonoscopy documented as of this encounter Results (ABNORMAL) Lipid panel (06/02/2022 9:33 AM CDT) athologist Signature Cholesterol 316 (H) 0 - 199 06/02/2022 [facility] mg/dL 2:16 PM [facility] Comment: Recommended by National Cholesterol Education Program (ATP III) -------- Cholesterol Ranges -------- <200 ?Desirable 200-239 ? Borderline high >=240 ? High Triglycerides 741 (H) 0 - 149 mg/dL 06/02/2022 2:16 PM T [facility] Comment: -------- TRIG Ranges -------- <150 ?Normal 150-199 ? Borderline high 200-499 ? High >=500 ? Very high HDL 41 40 - 250 mg/dL 06/02/2022 2:16 PM CDT [facility] Comment: -------- HDL Ranges -------- <40 ?Low 40-59 ?Normal >=60 ? Optimal LDL Calculated see below 0 - 99 mg/dL 06/02/2022 2:16 PM CDT [facility] Comment: Trig >400, calculated LDL invalid. -------- LDL Ranges -------- <100 ? Optimal 100-129 ?Near optimal/above op timal 130-159 ?Borderline high 160-189 ?High >=190 ?Very high Fasting? Yes 06/02/2022 9:36 AM CDT [facility] Specimen Anatomical Collection Method Collection Time Receive d Time (Source) Location / / Volume Laterality Blood 06/02/2022 9:33 AM CDT 12:39 PM CDT D. Avery Hopkins MD LAB BLOOD ORDERABLES Performing Organization Address City/State/ZIP Code Phon e Number [facility] [address] [place] [address] TSH (06/02/2022 9:33 AM CDT) athologist Signature TSH, Sensitive 1.80 0.46 - 06/03/2022 [facility] L 4.68 mIU/L 2:09 PM CDT CENTER [...] MD LAB BLOOD ORDERABLES Performing Organization Address City/[facility]/ZIP Code Phon e Number [facility] [address] [place] [address] (ABNORMAL) Basic metabolic panel (06/02/2022 9:33 AM CDT) Analysis Performed At Patho logist Time Signature Sodium 141 135 - 145 06/02/2022 [facility] mEq/L 2:16 PM [facility] Potassium 5.0 3.5 - 5.1 06/02/2022 [facility] mEq/L 2:16 PM [facility] Chloride 102 98 - 107 06/02/2022 [facility] mEq/L 2:16 PM [facility] CO2 28 22 - 29 06/02/2022 [facility] mmol/L 2:16 PM [facility] Creatinine 0.8 0.4 - 1.2 06/02/2022 [facility] mg/dL 2:16 PM [facility] BUN 10 5 - 25 06/02/2022 [facility] mg/dL 2:16 PM [facility] Glucose 114 (H) 70 - 100 06/02/2022 [facility] mg/dL 2:16 PM [facility] Calcium, 9.5 8.4 - 10.2 06/02/2022 [facility] Total,S mg/dL 2:16 PM [facility] Specimen Anatomical Collection Method Collection Time Receive d Time (Source) Location / / Volume Laterality Blood 06/02/2022 9:33 AM 2 CDT 12:39 PM CDT Matthew Hopkins MD LAB BLOOD ORDERABLES Performing Organization Address City/State/ZIP Code Phon e Number [facility] [address] [place] [address] documented in this encounter Visit Diagnoses Diagnosis Encounter for wellness examination in ad ult - Primary Screening for deficiency anemia Screening for other and unspecified defi ciency anemia Diabetes mellitus screening Screening for diabetes mellitus Hypothyroidism, unspecified type Screening cholesterol level Screening for lipoid disorders Anxiety Anxiety state, unspecified Depression, unspecified depression type Encounter for screening colonoscopy Visit for screening mammogram Mixed hyperlipidemia documented in this encounter Care Teams Sr. Merchandise Planner Relationship Specialty Start Date End Date Matthew Hopkins MD PCP - General 06/03/[address] [place] [address] documented as of this encounter
--- OUTSIDE RECORDS SUMMARY | 2022-07-14 08:14 | XMS_ITS | Encounter Summary ---
:1960 Author Organization [facility] Address [address] [place] [address] Care Team Providers Name Role Phone Matthew Hopkins MD Primary Care Provider Encounter Details Date Type Department Care Team Description 06/04/2022 Orders Only [place] Matthew Hopkins MD [address] [facility] 20 [address] [facility] 20 [place], [place] [address] [place], [place] [phone] (Wo rk) Social History Tobacco Use Types [...] on filedocumented in this encounter Care Teams Molder Hand Relationship Specialty Start Date End Date Matthew Hopkins MD PCP - General 06/03/[address] [place] [address] documented as of this encounter
--- OUTSIDE RECORDS SUMMARY | 2022-07-14 08:15 | XMS_ITS | Encounter Summary ---
:1960 Author Organization [facility] Address [address] [place] [address] Care Team Providers Name Role Phone Toña Tejada APRN, CNP Primary Care Provider [phone] Reason for Visit Reason Comments Follow-up Encounter Details Date Type Department Care Team Description 01/06/2019 Office Visit [place] Anxiety (Primary Dx); [address] M, ANYI MORELOS Depression, unspecified depression type [place] [address] [facility] [place] [address] [place] [address] Social History Tobacco Use Types Packs/Day Years Used Date Former Smoker Smokeless Tobacco: Never Used Alcohol Use Standard Drinks/Week Comments Yes 0 (1 standard drink = 0.6 oz pure alcoho l) Sex Assigned at Date Recorded Not on file documented as of this encounter Last Filed Vital Signs Vital Sign Reading Time Taken Comments Blood Pressure 134/72 01/06/2019 2:06 PM CDT Pulse 94 01/06/2019 2:06 PM CDT Temperature 37.1 ??C (98.7 ??F) 01/06/2019 2:06 PM CDT Respiratory Rate 16 01/06/2019 2:06 PM CDT Oxygen Saturation 98% 01/06/2019 2:06 PM CDT Inhaled Oxygen Concentration - - Weight 78.8 kg (173 lb 11.6 oz) 01/06/2019 2:06 PM CDT Height 162 cm (5' 3.78) 01/06/2019 2:06 PM CDT Body Mass Index 30.03 01/06/2019 2:06 PM CDT documented in this encounter Progress Notes Toña Tejada APRN, CNP - 01/06/2019 2:00 PM CDT Estab Patient Visit Subjective Patient ID: Genesis Barry is a 58 y.o. female presenting for the following concerns. Chief Complaint Patient presents with ??? Follow-up HPI: The patient is a 58 year old female presenting ambulatory to the clinical setting today requesting to have Cymbalta 60 mg daily renewed. The patient has a long-standing history of anxiety, depression, and alcohol addiction. The patient reports she continues to have high levels of anxiety and to a lesser extent depression, was previously on Zoloft 150 mg, which was ineffective. The patient had been evaluated by a psychiatrist, at [facility] in [place], and was started on Cymbalta 60 mg daily. The patient reports the psychiatrist felt her primary care provider could renew the Cymbalta from thispoint forward. The patient had met with a psychologist, uncertain if this was beneficial; therefore,discontinued meeting with the psychologist. The patient reports the Cymbalta has reduced her anxietyand depression, acknowledges she is not going to have complete relief from her anxiety, and it is possibly the best medication for her. The patient reports she continues to have an increased levels of s tress, as her son is in treatment for alcohol addiction at [place]. The patient reports her mother, who lives in [place], is now 86, acts as if she is 25, is 88 pounds, ill, is no longer able to prioritize, and her family is trying to attain a safe environment for her mother. 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 The patient has a history of hypothyroidism, her last TSH on 03/04/2018 was 4.20. The patient continues to drink 3-4 glasses of wine each night, has no intentions of quitting, and acknowledges she does have an alcohol addiction. She is a non-smoker. No recreational drug. The patient did fill out a SAROJ-7 and PHQ-9 form today. ROS: PSYCHIATRIC: See HPI. The patient has a history of anxiety, depression, and alcohol addiction. She is finding most relief while taking Cymbalta 60 mg daily, but not complete relief, and continues to have high levels of stress in owning her own business, supporting her son who is in treatment, and caring for an aging mother. The following portions of the patient's chart were reviewed in this encounter and updated as appropriate: Tobacco Allergies Meds Problems Med Hx Surg Hx Fam Hx Soc Hx Objective Visit Vitals BP 134/72 (BP Location: Left arm, Patient Position: Sitting) Pulse 94 Temp 37.1 ??C (98.7 ??F) (Temporal) Resp 16 Ht 1.62 m (5' 3.78) Wt 78.8 kg (173 lb 11.6 oz) SpO2 98% BMI 30.03 kg/m?? Smoking Status Former Smoker BSA 1.88 m?? GENERAL: The patient is alert, orientated, and in no apparent distress. PSYCHIATRIC: The patient's affect is appropriate. The patient's SAROJ-7 score was 21 her PHQ-9 score was 19 today. The patient denies suicidal thoughts and/or ideations. DIAGNOSTICS: None. Assessment/Plan Encounter Diagnoses Name Primary? Anxiety Yes ??? Depression, unspecified depression type Discussed the plan of care with the patient. Renewed Cymbalta 60 mg capsule, 1 capsule daily, quantity 90 capsules, for 90 days, with 3 refills. Prescribed BuSpar 7.5 mg tablet, 1 tablet p.o. twice daily as needed for anxiety, quantity 60 tablets, with 3 refills. The patient will be due for a Synthroid medication renewal and TSH in February, and will follow up at that time. The patient agrees and understands this plan of care. Toña Tejada APRN, CNP documented in this encounter Plan of Treatment Not on filedocumented as of this encounter Visit Diagnoses Diagnosis Anxiety - Primary Anxiety state, unspecified Depression, unspecified depression type documented in this encounter Care Teams Phlebotomy Lab Assistant Relationship Specialty Start Date End Date Toña Tejada APRN, CARDIAC CATH LAB MANAGER PCP - General Family Medicine 01/06/19 06/06/20 [address] [id number] documented as of this encounter
--- OUTSIDE RECORDS SUMMARY | 2022-07-14 08:15 | XMS_ITS | Clinical Summary ---
:1960 Author Organization [facility] [place] [address] Care Team Providers Name Role Phone Toña Tejada NP Primary Care Provider Allergies No known active allergies Medications Medication Sig Dispensed Refills Start Date End Date Status levothyroxine Take 50 mcg by 0 03/08/2018 Active (SYNTHROID) 50 mcg mouth once tablet daily. amitriptyline (ELAVIL) Take 1 tablet by 30 tablet 1 08/11/2018 Active 10 mg mouth at tabletIndications: bedtime. Moderate episode of recurrent major depressive disorder (HC), Anxiety, Sleep difficulties DULoxetine (CYMBALTA) TAKE 1 CAPSULE 30 capsule 0 11/08/2018 Active 60 mg Delayed-release BY MOUTH EVERY capsuleIndications: DAY Severe episode of recurrent major depressive disorder, without psychotic features (HC) Active Problems Problem Noted Date Sleep difficulties 08/11/2018 Severe episode of recurrent major depressive disorder, without psychotic 05/26/2018 features Alcohol use disorder, mild, abuse 05/26/2018 Anxiety 05/26/2018 Family History Medical History Relation Name Comments Alcoholism Father Depression Father Alcoholism Mother Depression Mother Relation Name Status Comments Brother 1 Alive Brother 2 grand matias guzman in the shower Father Alive Mother Alive Sister 1 Alive Sister 2 Alive Social History Tobacco Use Types Packs/Day Years Used Date Never Smoker Smokeless Tobacco: Never Used Tobacco Cessation: Counseling Given: Yes Alcohol Use Standard Drinks/Week Comments Yes 4 (1 standard drink = 0.6 oz pure alcoho l) every night Alcohol Habits Answer Date Recorded How often do you have a drink containing alcohol? Not asked How many drinks containing alcohol do you have on a typical Not asked day when you are drinking? How often do you have six or more drinks on one occasion? No t asked Comment: every night 05/03/2018 Sex Assigned at Date Recorded Not on file Obstetrics History Last Filed Vital Signs Vital Sign Reading Time Taken Comments Blood Pressure 145/92 08/11/2018 4:11 PM SOCIAL SCIENCE PROFESSOR Pulse 84 08/11/2018 4:11 PM SOCIAL SCIENCE PROFESSOR Temperature 37.1 ??C (98.8 ??F) 05/03/2018 11:47 AM CDT Respiratory Rate 18 08/11/2018 4:11 PM SOCIAL SCIENCE PROFESSOR Oxygen Saturation 95% 05/03/2018 11:47 AM CDT Inhaled Oxygen Concentration - - Weight 80.6 kg (177 lb 12.8 oz) 08/11/2018 4:09 PM SOCIAL SCIENCE PROFESSOR Height 160 cm (5' 3) 05/03/2018 11:47 AM CDT Body Mass Index 31.5 05/03/2018 11:47 AM CDT Plan of Treatment Health Maintenance Due Date Last Done Comments COVID-19 vaccine series (#1) 1960 Tdap 02/29/1972 Hepatitis C screening for age 0502/28/1979 18-79 Tetanus booster 1981 Pap test for age 21-65 1982 Colonoscopy through age 75 2006 Lipids for age 45-75 2006 Mammogram for age 45-75 2006 Zoster (shingles) series for age 0502/28/2011 50+ (1 of 2) BMI (ht and wt on same day) for 05/03/2019 05/03/2018 age 18+ Depression screening for age 12+ 08/11/2019 08/11/2018, 12/2017, 06/21/2018, Additional history exists Influenza for age 50-64 06/05/2022 Results Not on filefrom Last 3 Months Care Teams Loan Associate Relationship Specialty Start Date End Date Toña Tejada NP PCP - General Emergency Medicine 08/11/18
--- NOTE | 2022-07-14 10:13 | W.ANESCHARGE ---
Anesthesia Charges Start Date/Time Anesthesia Start Date: 07/14/22 Anesthesia Start Time: 09:23 Stop Date/Time Anesthesia Stop Date: 07/14/22 Anesthesia Stop Time: 10:10 Summary Emergency: No
--- NOTE | 2022-07-14 10:27 | W.ANESCHARGE ---
Anesthesia Charges Start Date/Time Anesthesia Start Date: 07/14/22 Anesthesia Start Time: 09:23 Stop Date/Time Anesthesia Stop Date: 07/14/22 Anesthesia Stop Time: 10:10 Summary Emergency: No
== END 2022-07-14 08:13 | disposition home or self-care (01) ==
LOC: OP CLINIC 08:12
PROVIDERS: PCP Family Medicine; Visit Provider Surgery
DX: Z12.11 Encounter for screening for malignant neoplasm of colon (principal); K62.1 Rectal polyp; K57.30 Diverticulosis of large intestine without perforation or abscess without bleeding; K62.89 Other specified diseases of anus and rectum; Z86.010 Personal history of colon polyps
CPT/HCPCS: 00811; 45380; 45385; 88305; J2704

== ENCOUNTER 2022-08-12 09:55 | Outpatient (CLI) | payer BC, SELFPAY ==
--- NOTE | 2022-08-12 10:15 | CRLHL7_ITS ---
For Patients: As a result of the Cures Act, medical imaging exams and procedure reports are released immediately into your electronic medical record. You may view this report before your referring provider. If you have questions, please contact your health care provider. BILATERAL SCREENING MAMMOGRAM WITH COMPUTER-AIDED DETECTION AND TOMOSYNTHESIS TECHNIQUE: CC and MLO views were obtained. These mammographic images have been obtained using full-field digital technique. These mammographic images were interpreted with the benefit of computer-aided detection. Breast Tomosynthesis was used in this interpretation. COMPARISON FILM: 07/09/20, 03/22/15. FINDINGS: There are scattered areas of fibroglandular density IMPRESSION: There is no radiographic evidence for malignancy. ASSESSMENT: BI-RADS Category 1: Negative RECOMMENDATION: Routine screening mammogram in 1 year. A lay language report of this examination will be provided to the patient. Naren Coombs M.D. Diagnostic/Nuclear Medicine Radiologist [email or web address] RAY/madison Transcribed: 3:23 p.m. JOE/Dictated by: Naren Coombs MD @ 08/12/2022 10:59:00 AM (Electronically Signed)
--- OUTSIDE RECORDS SUMMARY | 2022-08-12 10:38 | XMS_ITS | Encounter Summary ---
:1960 Author Organization [facility] Address [address] [place] [address] Care Team Providers Name Role Phone Toña Tejada APRN, SAUSAGE MIXER Primary Care Provider [phone] Encounter Details Date Type Department Care Team Description 04/23/2020 Lab [place] Diabetes mellitus screening; [address] [address] Screening cholesterol level; [place], [place] [address] Hypothyroidism, unspecified type; [phone] Screening for d eficiency anemia Social History [...] P athologist Signature Fasting? No 04/23/2020 1:30 [facility] [place] Specimen Anatomical Collection Method Collection Time Receive d Time (Source) Location / / Volume Laterality 04/23/2020 12:21 04/23/2020 PM CDT 12:21 PM CDT Matthew Hopkins MD LAB BLOOD ORDERABLES Performing Organization Address City/State/ZIP Code Phon e Number [facility] [place] [address] [place] [address] HemoCue glucose (04/23/2020 12:21 PM CDT) P [...] [facility] [place] [address] [place] [address] (ABNORMAL) CBC Branch Off w/Diff (04/23/2020 12:21 PM CDT) [facility] gist Method Time Signature WBC 6.0 3.5 [...] [place] Lymphocytes % 32.9 % 04/23/2020 [facility] 1:30 PM [place] Mid-size Cells 7.5 % 04/23/2020 [facility] 1:30 PM [place] Granulocytes/Tung 59.6 % 04/23/2020 [facility] trophils 1:30 PM [place] Lymphocytes 2.0 0.9 - 2.9 04/23/2020 [facility] Absolute K/uL 1:30 PM [place]T [place] MIDS Absolute 0.5 0.4 - 1.5 04/23/2020 [facility] K/uL 1:30 PM CDT [place] Granulocytes/Tung 3.5 1.7 - 7.0 04/23/2020 [facility] trophils K/uL 1:30 PM [place]T [place] Absolute Specimen Anatomical Collection Method Collection Time Receive d Time (Source) Location / / Volume Laterality 04/23/2020 12:21 04/23/2020 PM CDT 12:21 PM CDT D. Avery Hopkins MD LAB BLOOD ORDERABLES Performing Organization Address City/State/ZIP Code Phon e Number [facility] [place] [address] [place], [place] [address] TSH (04/23/2020 12:21 PM CDT) athologist Signature [...] Number [facility] [address] [place] [address] (ABNORMAL) Lipid panel (04/23/2020 12:21 PM CDT) P athologist Signature Cholesterol 331 (A) 0 - 199 04/24/2020 [facility] mg/dL 3:03 PM CDT [facility] Comment: Recommended by National Cholesterol Education Program (ATP III) -------- Cholesterol Ranges -------- <200 ? Desirable 200-239 ? Borderline high >=240 ? High Triglycerides 789 (A) 0 - 149 mg/dL 04/24/2020 3:04 PM CDT [facility] Comment: -------- TRIG Ranges -------- <150 ?Normal 150-199 ? Borderline high 200-499 ? High >=500 ? Very high HDL 40 40 - 60 mg/dL 04/24/2020 3:03 PM CDT [facility] Comment: -------- HDL Ranges -------- <40 ?Low 40-59 ?Normal >=60 ? Optimal LDL Calculated see below 0 - 99 mg/dL 04/24/2020 3:04 PM CDT [facility] Comment: -------- LDL Ranges -------- <100 ? Optimal 100-129 ?Near optimal/above op timal 130-159 ?Borderline high 160-189 ?High >=190 ?Very high Trig >400, calculated LDL invalid. Fasting? No 04/23/2020 1:29 PM CDT [facility] Comment: Provider ok with patient not fasting. Specimen Anatomical Collection Method Collection Time Receive d Time (Source) Location / / Volume Laterality Blood 04/23/2020 12:21 04/24/2020 1:16 PM CDT PM CDT D. A[place] Hopkins MD LAB BLOOD ORDERABLES Performing Organization Address City/State/ZIP Code Phon e Number [facility] [address] [place] [address] documented in this encounter Visit Diagnoses Diagnosis Diabetes mellitus screening Screening for diabetes mellitus Screening cholesterol level Screening for lipoid disorders Hypothyroidism, unspecified type Screening for deficiency anemia Screening for other and unspecified defi ciency anemia documented in this encounter Care Teams Electronic Device Repairer Relationship Specialty Start Date End Date Toña Tejada APRN, SAUSAGE MIXER PCP - General Family Medicine 01/06/19 06/06/[address] [place] [address] documented as of this encounter
--- OUTSIDE RECORDS SUMMARY | 2022-08-12 10:38 | XMS_ITS | Encounter Summary ---
:1960 Author Organization [facility] Address [address] [place] [address] Care Team Providers Name Role Phone None, Pcp Primary Care Provider Unavailable Encounter Details Date Type Department Care Team Description 12/31/2020 Orders Only [place] Matthew Hopkins MD [address] [facility] 20 [address] [facility] 20 [place], [place] [address] [place], [place] [phone] (Wo rk) Social History Tobacco Use Types [...] on filedocumented in this encounter Care Teams Reversing Mill Roller Relationship Specialty Start Date End Date None, Pcp PCP - General Licensed Loan Officer 06/26/20 06/02/21 [address] [place] [address] documented as of this encounter
--- OUTSIDE RECORDS SUMMARY | 2022-08-12 10:38 | XMS_ITS | Encounter Summary ---
:1960 Author Organization [facility] Address [address] [place] [address] Care Team Providers Name Role Phone Matthew Hopkins MD Primary Care Provider Encounter Details Date Type Department Care Team Description 06/04/2022 Orders Only [place] Matthew Hopkins MD [address] [facility] 20 1705 [facility] 20 [place], [place] [address] [place], [place] [phone] [address] (Wo rk) Social History Tobacco Use Types [...] on filedocumented in this encounter Care Teams Product Management Internship Relationship Specialty Start Date End Date Matthew Hopkins MD PCP - General 06/03/[address] [place] [address] documented as of this encounter
--- OUTSIDE RECORDS SUMMARY | 2022-08-12 10:38 | XMS_ITS | Encounter Summary ---
:1960 Author Organization [facility] Address [address] [place] [address] Care Team Providers Name Role Phone None, Pcp Primary Care Provider Unavailable Reason for Referral Imaging (Routine) - Closed Specialty Diagnoses / Procedures Referred By Contact Refer red To Contact Radiology Diagnoses Visit for screening mammogram Matthew Hopkins MD Procedures Mammogram breast screening bilateral [address] [place] [address] Referral ID Status Reason Start Date Expiration Date Visits Requ ested Visits Authorized [id number] Closed 05/06/2021 05/06/2022 1 1 Reason for Visit Reason Comments Medication Visit Encounter Details Date Type Department Care Team Description 05/06/2021 Office Visit Matthew Yeh Visit for screening mammogra m (Primary Dx); [address] [place] Encounter for wellness examination in ad ult; [place], [place] [address] Mixed hyperlipidemia; [phone] [place] Hypothyroidism, [place] [address] Social History Tobacco Use Types Packs/Day Years [...] their home located on a [address] in [facility] [facility] and she has purchased a [place] in [place] that she will be staying [...] her . She is currently working in [place]. Her has applied for Social [...] original note were not included. Nurse Note [facility] road roller operator hot mix 4.8 (73) ?? Oral surgeon [address] ?? In [facility] Professional Building ?? Oral Surgery Care 3.7 (31) ?? Oral surgeon [address] ?? [facility] 4.3 (72) ?? Oral surgeon [...] CDT Referral and face sheet faxed to [facility] road roller operator hot mix at [address] [facility] in [place]. documented in this encounter Plan of Treatment [...] type documented in this encounter Care Teams Electronic Engineering Technician Relationship Specialty Start Date End Date None, Pcp PCP - General Aeronautical Engineer 06/26/20 06/02/[address] [place] [phone] documented as of this encounter
--- OUTSIDE RECORDS SUMMARY | 2022-08-12 10:38 | XMS_ITS | Encounter Summary ---
:1960 Author Organization [facility] Address [address] [place] [address] Care Team Providers Name Role Phone None, Pcp Primary Care Provider Unavailable Reason for Referral Consultation (Routine) - Closed Specialty Diagnoses / Procedures Referred By Contact Refer red To Contact Diagnoses Lip lesion Matthew Hopkins MD Other [address] [place], [place] [address] Referral ID Status Reason Start Date Expiration Date Visits Requ ested Visits Authorized [id number] Closed 05/06/2021 05/06/2022 1 1 Encounter Details Date Type Department Care Team Description 05/06/2021 Orders Only Matthew Yeh Lip lesion (Primary Dx) [address] MD A[place], [place] [address] [place] [address] Social History Tobacco Use Types Packs/Day Years [...] lips documented in this encounter Care Teams Dump Worker Relationship Specialty Start Date End Date None, Pcp PCP - General Senior Energy Analyst 06/26/20 06/02/[address] [place] [phone] documented as of this encounter
--- OUTSIDE RECORDS SUMMARY | 2022-08-12 10:38 | XMS_ITS | Encounter Summary ---
:1960 Author Organization [facility] Address [address] [place] [address] Care Team Providers Name Role Phone Matthew Hopkins MD Primary Care Provider Reason for Referral Consultation (Routine) - Authorized Specialty Diagnoses / Procedures Referred By Contact Refer red To Contact Diagnoses Encounter for screening colonoscopy Matthew Hopkins MD [facility] 1705 [facility] [address] [phone] Referral ID Status Reason Start Date Expiration Date Visits V isits Requested Authorized [id number] Authorized 06/03/2022 06/03/2023 1 1 Consultation (Routine) - Authorized Specialty Diagnoses / Procedures Referred By Contact Refer red To Contact Diagnoses Visit for screening mammogram Matthew Hopkins MD [facility] [address] [phone] Referral ID Status Reason Start Date Expiration Date Visits V isits Requested Authorized [id number] Authorized 06/03/2022 06/03/2023 1 1 Reason for Visit Reason Comments Med Refill Encounter Details Date Type Department Care Team Description 06/02/2022 Office Visit Matthew Yeh Encounter for wellness exami nation in adult (Primary Dx); [address] [place] Screening for deficiency anemia; [place], [place] [address] Diabetes me llitus screening; [address] [place] Hypothyroidism, unspecified type; [phone] [place], Screening chol esterol level; [place] [address] Anxiety; [phone] Depression, uns pecified depression type; (Work) Encounter for screening colonoscopy; [phone] Visit for scree roshan mammogram; (Fax) Mixed [...] she currently lives in a townhouse in [place] [facility] where she also works full-time. Her is retired at age 64 and lives in [facility] [place] [facility]. She has 3 children and 5 grandchildren. [...] and this will be arranged at the [facility] COLON CANCER SCREENING she last had a Cologuard test 3 years ago. We have highly recommended that she get the colonoscopy this year and she agrees to do so and will have it done at the [facility]. PAP SMEARS has been more than 5 [...] solution; Please follow the directions on your [facility] colonoscopy prep sheet. - Ambulatory External Referral [...] for mammogram and colonoscopy both at the [facility]. Dora Downing RN - 06/02/2022 8:40 AM CDT Please fax per provider's direction. SSAT Dora Downing RN - 06/02/2022 8:40 AM CDT Please fax per provider's request. SSAT Dora Downing RN - 06/02/2022 8:40 AM CDT Please fax. Coco Waggoner - 06/02/2022 8:40 AM CDT Faxed referral to [facility] Radiology for mammogram screening. Faxed referral to [facility] General Surgery for colonoscopy screening. Coco Waggoner - 06/02/2022 8:40 AM CDT Faxed referral to [facility] Radiology for mammogram. [facility] documented in this encounter [...] Cholesterol 316 (H) 0 - 199 06/02/2022 [facility] mg/dL 2:16 PM [facility] Comment: Recommended by National Cholesterol Education Program (ATP III) -------- Cholesterol Ranges -------- <200 ?Desirable 200-239 ? Borderline high >=240 ? High Triglycerides 741 (H) 0 - 149 mg/dL 06/02/2022 2:16 PM T [facility] Comment: -------- TRIG Ranges -------- <150 ?Normal 150-199 ? Borderline high 200-499 ? High >=500 ? Very high HDL 41 40 - 250 mg/dL 06/02/2022 2:16 PM CDT [facility] Comment: -------- HDL Ranges -------- <40 ?Low 40-59 ?Normal >=60 ? Optimal LDL Calculated see below 0 - 99 mg/dL 06/02/2022 2:16 PM CDT [facility] Comment: Trig >400, calculated LDL invalid. -------- LDL Ranges -------- <100 ? Optimal 100-129 ?Near optimal/above op timal 130-159 ?Borderline high 160-189 ?High >=190 ?Very high Fasting? Yes 06/02/2022 9:36 AM CDT [facility] Specimen Anatomical Collection Method Collection Time Receive d Time (Source) Location / / Volume Laterality Blood 06/02/2022 9:33 AM CDT 12:39 PM CDT D. A[place] Hopkins MD LAB BLOOD ORDERABLES Performing Organization Address City/State/ZIP Code Phon e Number [facility] [address] [place] [address] TSH (06/02/2022 9:33 AM CDT) athologist Signature TSH, Sensitive 1.80 0.46 - 06/03/2022 [facility] L 4.68 mIU/L 2:09 PM CDT CENTER [...] MD LAB BLOOD ORDERABLES Performing Organization Address City/[facility]/ZIP Code Phon e Number [facility] [address] [place] [address] (ABNORMAL) Basic metabolic panel (06/02/2022 9:33 AM CDT) Analysis Performed At Patho logist Time Signature Sodium 141 135 - 145 06/02/2022 [facility] mEq/L 2:16 PM [facility] Potassium 5.0 3.5 - 5.1 06/02/2022 [facility] mEq/L 2:16 PM [facility] Chloride 102 98 - 107 06/02/2022 [facility] mEq/L 2:16 PM [facility] CO2 28 22 - 29 06/02/2022 [facility] mmol/L 2:16 PM [facility] Creatinine 0.8 0.4 - 1.2 06/02/2022 [facility] mg/dL 2:16 PM [facility] BUN 10 5 - 25 06/02/2022 [facility] mg/dL 2:16 PM [facility] Glucose 114 (H) 70 - 100 06/02/2022 [facility] mg/dL 2:16 PM [facility] Calcium, 9.5 8.4 - 10.2 06/02/2022 [facility] Total,S mg/dL 2:16 PM [facility] Specimen Anatomical Collection Method Collection Time Receive d Time (Source) Location / / Volume Laterality Blood 06/02/2022 9:33 AM 2 CDT 12:39 PM CDT Matthew Hopkins MD LAB BLOOD ORDERABLES Performing Organization Address City/State/ZIP Code Phon e Number [facility] [address] [place] [address] documented in this encounter Visit Diagnoses Diagnosis [...] hyperlipidemia documented in this encounter Care Teams Logistics Associate Relationship Specialty Start Date End Date Matthew Hopkins MD PCP - General 06/03/[address] [place] [address] documented as of this encounter
--- OUTSIDE RECORDS SUMMARY | 2022-08-12 10:38 | XMS_ITS | Encounter Summary ---
:1960 Author Organization [facility] Address [address] [place] [address] Care Team Providers Name Role Phone Matthew Hopkins MD Primary Care Provider Reason for Visit Reason Onset Date Comments referral questions 06/16/2022 Encounter Details Date Type Department Care Team Description 06/16/2022 Telephone [place], referral questions [address] [place], [place] [address]49 [facility] 20 [place] [phone] [place] [address] (Wo rk) Social History Tobacco Use Types Packs/Day Years Used Date Former Smoker Smokeless Tobacco: Never Used Alcohol Use Standard Drinks/Week Comments Yes 0 (1 standard drink = 0.6 oz pure alcoho l) Sex Assigned at Date Recorded Not on file documented as of this encounter Miscellaneous Notes Telephone Encounter - Dora Downing RN - 06/30/2022 3:51 PM CDT Noted Telephone Encounter - Shayla Gutierrez - 06/30/2022 3:26 PM CDT Pre-op for colonoscopy faxed to [facility]. Telephone Encounter - Dora Downing RN - 06/18/2022 4:46 PM CDT Spoke with Reyna at [facility]/radiology auditing clerk. Will produce disk and send directly to [facility] as requested. Patient was notified. Telephone Encounter - Dora Downing RN - 06/18/2022 10:35 AM CDT Will need to request disc from [facility]. Telephone Encounter - Coco Waggoner - 06/18/2022 7:37 AM CDT Faxed to [facility] [phone] Telephone Encounter - Dora Downing RN - 06/17/2022 5:13 PM CDT Please re-fax referral for colonoscopy as [facility] states they have not received. Thank you. Telephone Encounter - Coco Waggoner - 06/16/2022 3:26 PM CDT Pt stated referrals for colonoscopy and mammo were made by Dr. Hopkins. She has the mammo appt; but, no colonoscopy appt made yet; had questions. Regarding the mammo, they were requesting prior mammo discs for comparison as she had a mammo at [facility] [place] prior. Advise. [phone]. documented in this encounter Plan of Treatment Not on filedocumented as of this encounter Visit Diagnoses Not on filedocumented in this encounter Care Teams Backup Administrative Coordinator Relationship Specialty Start Date End Date Matthew Hopkins MD PCP - General 06/03/[address] [place] [address] documented as of this encounter
--- OUTSIDE RECORDS SUMMARY | 2022-08-12 10:38 | XMS_ITS | Encounter Summary ---
:1960 Author Organization [facility] Address [address] [place] [address] Care Team Providers Name Role Phone Toña Tejada APRN, MANAGER OF DISASTER RECOVERY Primary Care Provider [phone] Encounter Details Date Type Department Care Team Description 04/25/2020 Orders Only Matthew Yeh Mixed hyperlipidemia [address] [place] (Primary Dx) [place], [place] [address] [facility] 20 [place] [address] Social History Tobacco Use Types Packs/Day Years Used Date Former Smoker Smokeless Tobacco: Never Used Alcohol Use Standard Drinks/Week Comments Yes 0 (1 standard drink = 0.6 oz pure alcoho l) Sex Assigned at Date Recorded Not on file documented as of this encounter Plan of Treatment Not on filedocumented as of this encounter Results (ABNORMAL) Lipid panel (12/24/2020 9:21 AM CDT) athologist Signature Cholesterol 256 (H) 0 - 199 12/24/2020 [facility] mg/dL 1:37 PM T [facility] Comment: Recommended by National Cholesterol Education Program (ATP III) -------- Cholesterol Ranges -------- <200 ?Desirable 200-239 ? Borderline high >=240 ? High Triglycerides 351 (H) 0 - 149 mg/dL 12/24/2020 1:37 PM CDT [facility] Comment: -------- TRIG Ranges -------- <150 ?Normal 150-199 ? Borderline high 200-499 ? High >=500 ? Very high HDL 52 40 - 250 mg/dL 12/24/2020 1:37 PM CDT [facility] Comment: -------- HDL Ranges -------- <40 ?Low 40-59 ?Normal >=60 ? Optimal LDL Calculated 134 (H) 0 - 99 mg/dL 12/24/2020 1:37 PM CDT [facility] Comment: -------- LDL Ranges -------- <100 ? Optimal 100-129 ?Near optimal/above op timal 130-159 ?Borderline high 160-189 ?High >=190 ?Very high Fasting? Yes 12/24/2020 9:24 AM CDT [facility] Specimen Anatomical Collection Method Collection Time Receive d Time (Source) Location / / Volume Laterality Blood 12/24/2020 9:21 AM 1 1:02 CDT PM CDT D. A[place] Hopkins MD LAB BLOOD ORDERABLES Performing Organization Address City/State/ZIP Code Phon e Number [facility] [address] [place] [address] documented in this encounter Visit Diagnoses Diagnosis Mixed hyperlipidemia - Primary documented in this encounter Care Teams Tool Engineer Relationship Specialty Start Date End Date Toña Tejada, WATER SUPERINTENDENT, MANAGER OF DISASTER RECOVERY PCP - General Family Medicine 01/06/19 06/06/[address] [place] [address] documented as of this encounter
--- OUTSIDE RECORDS SUMMARY | 2022-08-12 10:38 | XMS_ITS | Encounter Summary ---
:1960 Author Organization [facility] Address [address] [place] [address] Care Team Providers Name Role Phone None, Pcp Primary Care Provider Unavailable Encounter Details Date Type Department Care Team Description 01/25/2021 Immunization Family Medicine [address] [place] [address] Social History Tobacco Use Types Packs/Day Years [...] on filedocumented in this encounter Care Teams Corporate Recycling Manager Relationship Specialty Start Date End Date None, Pcp PCP - General Sheet Layer 06/26/20 06/02/21 [address] [place] [address] documented as of this encounter
--- OUTSIDE RECORDS SUMMARY | 2022-08-12 10:38 | XMS_ITS | Encounter Summary ---
:1960 Author Organization [facility] Address [address] [place] [address] Care Team Providers Name Role Phone Matthew Hopkins MD Primary Care Provider Reason for Visit Reason Comments Med Refill Encounter Details Date Type Department Care Team Description 05/21/2022 Refill [place] Reyna, Anxiety; [address] [facility] 20 Depression, unspecified depression type [place], [place] [address] [phone] [place] [address] Social History Tobacco Use Types Packs/Day Years [...] uses [facility]. Please call Pt at [phone] to advise. Telephone Encounter - Coco Waggoner [...] type documented in this encounter Care Teams Research Agricultural Engineer Relationship Specialty Start Date End Date Matthew Hopkins MD PCP - General 06/03/[address] [place] [address] documented as of this encounter
--- OUTSIDE RECORDS SUMMARY | 2022-08-12 10:38 | XMS_ITS | Encounter Summary ---
:1960 Author Organization [facility] Address [address] [place] [address] Care Team Providers Name Role Phone Matthew Hopkins MD Primary Care Provider Encounter Details Date Type Department Care Team Description 06/02/2022 Lab [place] Screening cholesterol level; [address] Hypothyroidism, unspecified type; [place], [place] [address] Diabetes mellitus screening; [phone] Screening for d eficiency anemia Social History [...] CDT) P athologist Signature GFR >60 06/02/2022 [facility] 2:16 PM CDT [facility] >60 06/02/2022 [facility] Guyanese GFR 2:16 PM CDT [facility] Comment: [...] Organization Address City/State/ZIP Code Phon e Number [facility] [address] [place] [phone] CBC Branch Off w/Diff (06/02/2022 9:33 AM [...] CDT [place] Mid-size Cells 8.7 % 06/02/2022 [facility] [place] 10:26 AM CDT [place] Granulocytes/Tung 47.6 % 06/02/2022 [facility] [place] trophils 10:26 AM CDT [place] Lymphocytes 2.0 0.9 - 2.9 06/02/2022 [facility] [place] Absolute K/uL 10:26 AM CDT [place] MIDS Absolute 0.4 0.4 - 1.5 06/02/2022 [facility] [place] K/uL 10:26 AM CDT [place] Granulocytes/Tung 2.2 1.7 - 7.0 06/02/2022 [facility] [place] trophils K/uL 10:26 AM CDT [place] Absolute Specimen Anatomical Collection Method Collection Time Receive d Time (Source) Location / / Volume Laterality 06/02/2022 9:33 AM 9:36 CDT AM CDT D. Avery Hopkins MD LAB BLOOD ORDERABLES Performing Organization Address City/State/ZIP Code Phon e Number [facility] [place] [address] [place] [address] (ABNORMAL) Basic metabolic panel (06/02/2022 9:33 AM CDT) Analysis Performed At Patho logist Time Signature Sodium 141 135 - 145 06/02/2022 [facility] mEq/L 2:16 PM [facility] Potassium 5.0 3.5 - 5.1 06/02/2022 [facility] mEq/L 2:16 PM [facility] Chloride 102 98 - 107 06/02/2022 [facility] mEq/L 2:16 PM [facility] CO2 28 22 - 29 06/02/2022 [facility] mmol/L 2:16 PM [facility] Creatinine 0.8 0.4 - 1.2 06/02/2022 [facility] mg/dL 2:16 PM [facility] BUN 10 5 - 25 06/02/2022 [facility] mg/dL 2:16 PM [facility] Glucose 114 (H) 70 - 100 06/02/2022 [facility] mg/dL 2:16 PM [facility] Calcium, 9.5 8.4 - 10.2 06/02/2022 [facility] Total,S mg/dL 2:16 PM CDT [facility] Specimen Anatomical Collection Method Collection Time Receive d Time (Source) Location / / Volume Laterality Blood 06/02/2022 9:33 AM 2 CDT 12:39 PM CDT Matthew Hopkins MD LAB BLOOD ORDERABLES Performing Organization Address [facility] e Number [facility] [address] [place] [phone] TSH (06/02/2022 9:33 AM CDT) athologist Signature [...] MD LAB BLOOD ORDERABLES Performing Organization Address [facility] Phon e Number [facility] [address] [place] [address] (ABNORMAL) Lipid panel (06/02/2022 9:33 AM CDT) athologist Signature Cholesterol 316 (H) 0 - 199 06/02/2022 [facility] mg/dL 2:16 PM CDT [facility] Comment: Recommended by National Cholesterol Education Program (ATP III) -------- Cholesterol Ranges -------- <200 ?Desirable 200-239 ? Borderline high >=240 ? High Triglycerides 741 (H) 0 - 149 mg/dL 06/02/2022 2:16 PM CDT [facility] Comment: -------- TRIG Ranges -------- <150 ?Normal 150-199 ? Borderline high 200-499 ? High >=500 ? Very high HDL 41 40 - 250 mg/dL 06/02/2022 2:16 PM CDT [facility] Comment: -------- HDL Ranges -------- <40 ?Low 40-59 ?Normal >=60 ? Optimal LDL Calculated see below 0 - 99 mg/dL 06/02/2022 2:16 PM CDT [facility] Comment: Trig >400, calculated LDL invalid. -------- LDL Ranges -------- <100 ? Optimal 100-129 ?Near optimal/above op timal 130-159 ?Borderline high 160-189 ?High >=190 ?Very high Fasting? Yes 06/02/2022 9:36 AM CDT [facility] Specimen Anatomical Collection Method Collection Time Receive d Time (Source) Location / / Volume Laterality Blood 06/02/2022 9:33 AM 2 CDT 12:39 PM CDT D. Avery Hopkins MD LAB BLOOD ORDERABLES Performing Organization Address City/State/ZIP Code Phon e Number [facility] [address] [place] [address] documented in this encounter Visit Diagnoses Diagnosis Screening cholesterol level Screening for lipoid disorders Hypothyroidism, unspecified type Diabetes mellitus screening Screening for diabetes mellitus Screening for deficiency anemia Screening for other and unspecified defi ciency anemia documented in this encounter Care Teams Grader Green Meat Relationship Specialty Start Date End Date Matthew Hopkins MD PCP - General 06/03/[address] [place] [address] documented as of this encounter
--- OUTSIDE RECORDS SUMMARY | 2022-08-12 10:38 | XMS_ITS | Encounter Summary ---
:1960 Author Organization [facility] Address [address] [place] [address] Care Team Providers Name Role Phone None, Pcp Primary Care Provider Unavailable Encounter Details Date Type Department Care Team Description 04/23/2021 Orders Only Matthew Yeh Screening for deficiency ane yoanna (Primary Dx); [address] [place] Hypothyroidism, unspecified type; [place], [place] [address] Mixed hyperlipidemia; [phone] [place] [address] Social History Tobacco Use Types Packs/Day Years [...] Cholesterol 225 (H) 0 - 199 04/29/2021 [facility] mg/dL 2:45 PM T [facility] Comment: Recommended by National Cholesterol Education Program (ATP III) -------- Cholesterol Ranges -------- <200 ?Desirable 200-239 ? Borderline high >=240 ? High Triglycerides 329 (H) 0 - 149 mg/dL 04/29/2021 2:[address] [facility] Comment: -------- TRIG Ranges -------- <150 ?Normal 150-199 ? Borderline high 200-499 ? High >=500 ? Very high HDL 52 40 - 250 mg/dL 04/29/2021 2:45 PM CDT [facility] Comment: -------- HDL Ranges -------- <40 ?Low 40-59 ?Normal >=60 ? Optimal LDL Calculated 107 (H) 0 - 99 mg/dL 04/29/2021 2:[address] [facility] Comment: -------- LDL Ranges -------- <100 ? Optimal 100-129 ?Near optimal/above op timal 130-159 ?Borderline high 160-189 ?High >=190 ?Very high Fasting? Yes 04/29/2021 8:[address] [facility] Specimen Anatomical Collection Method Collection Time Receive d Time (Source) Location / / Volume Laterality Blood 04/29/2021 8:34 AM CDT 12:45 PM CDT D. Avery Hopkins MD LAB BLOOD ORDERABLES Performing Organization Address City/State/ZIP Code Phon e Number [facility] [address] [place] [address] (ABNORMAL) TSH (04/29/2021 8:34 AM CDT) Analysis Performed At Patho logist Time Signature TSH, Sensitive 5.45 (H) 0.46 - 04/29/2021 [place] 4.68 mIU/L 2:25 PM T [facility] Comment: The results from this [...] Address City/State/ZIP Code Phon e Number [facility] [address] [place] [address] documented in this encounter Visit Diagnoses Diagnosis Screening for deficiency anemia - Primar y Screening for other and unspecified defi ciency anemia Hypothyroidism, unspecified type Mixed hyperlipidemia Diabetes mellitus screening Screening for diabetes mellitus documented in this encounter Care Teams Chiropractic Doctor Relationship Specialty Start Date End Date None, Pcp PCP - General Stick Inserter 06/26/20 06/02/21 [address] [place] [address] documented as of this encounter
--- OUTSIDE RECORDS SUMMARY | 2022-08-12 10:38 | XMS_ITS | Encounter Summary ---
:1960 Author Organization [facility] Address [address] [place] [address] Care Team Providers Name Role Phone None, Pcp Primary Care Provider Unavailable Encounter Details Date Type Department Care Team Description 12/24/2020 Lab [place] Mixed hyperlipidemia [address] [place], [place] [address] Social History Tobacco Use [...] Cholesterol 256 (H) 0 - 199 12/24/2020 [facility] mg/dL 1:37 PM T [facility] Comment: Recommended by National Cholesterol Education Program (ATP III) -------- Cholesterol Ranges -------- <200 ?Desirable 200-239 ? Borderline high >=240 ? High Triglycerides 351 (H) 0 - 149 mg/dL 12/24/2020 1:37 PM T [facility] Comment: -------- TRIG Ranges -------- <150 ?Normal 150-199 ? Borderline high 200-499 ? High >=500 ? Very high HDL 52 40 - 250 mg/dL 12/24/2020 1:37 PM CDT [facility] Comment: -------- HDL Ranges -------- <40 ?Low 40-59 ?Normal >=60 ? Optimal LDL Calculated 134 (H) 0 - 99 mg/dL 12/24/2020 1:37 PM CDT [facility] Comment: -------- LDL Ranges -------- <100 ? Optimal 100-129 ?Near optimal/above op timal 130-159 ?Borderline high 160-189 ?High >=190 ?Very high Fasting? Yes 12/24/2020 9:24 AM CDT [facility] Specimen Anatomical Collection Method Collection Time Receive d Time (Source) Location / / Volume Laterality Blood 12/24/2020 9:21 AM 1:02 CDT PM CDT D. Avery Hopkins MD LAB BLOOD ORDERABLES Performing Organization Address City/State/ZIP Code Phon e Number [facility] [address] [place] [address] documented in this encounter Visit Diagnoses Diagnosis Mixed hyperlipidemia documented in this encounter Care Teams Brass Pourer Relationship Specialty Start Date End Date None, Pcp PCP - General Pattern Hand 06/26/20 06/02/21 [address] [place] [address] documented as of this encounter
--- OUTSIDE RECORDS SUMMARY | 2022-08-12 10:38 | XMS_ITS | Clinical Summary ---
:1960 Author Organization [facility] Address [address] [place] [address] Care Team Providers Name Role Phone Matthew Hopkins MD Primary Care Provider Allergies No known active allergies Medications Medication Sig Dispensed Refills Start Date End Date Status atorvastatin Take ONE a day for 90 tablet 3 06/03/2022 Active (Lipitor) 80 MG cholesterol tabletIndications: Mixed hyperlipidemia DULoxetine (CYMBALTA) TAKE 1 CAPSULE(60 90 capsule [address] MG) BY MOUTH 1 capsuleIndications: TIME EACH DAY Anxiety, Depression, unspecified depression type levothyroxine Take one a day for 90 tablet 3 06/03/2022 Active (SYNTHROID) 75 MCG thyroid tabletIndications: Hypothyroidism, unspecified type ondansetron (Zofran) May take one tab 4 tablet 1 07/10/2022 Active 4 MG around one hour tabletIndications: before scheduled Nausea procedure for nausea. May repeat every 4-6 hours IF needed Active Problems Problem Noted Date Overweight (BMI 25.0-29.9) 06/30/2022 Sleep difficulties 08/11/2018 Alcohol use disorder, mild, abuse 03/04/2018 Anxiety 03/04/2018 Major depressive disorder, single episode 03/04/2018 Irritable bowel syndrome without diarrhea 01/03/2016 Unspecified hypothyroidism 01/04/2015 Encounters Date Type Specialty Care Team Description 07/25/2022 Telephone Family Matthew Chappell MD 07/09/2022 Telephone Family Medicine Matthew Hopkins, anti-n ausea Rx 06/30/2022 Consult Family Medicine Matthew Hopkins, Carlos ter for screening MD colonoscopy (Pr imary Dx) 06/16/2022 Telephone Family Matthew Chappell, referr al questions 06/04/2022 Orders Only Family Medicine Matthew Hopkins MD 06/02/2022 Lab [facility] Screening ch olesterol level; Hypothyroidism, unspecified type; Diabetes mellit us screening; Screening for d eficiency anemia 06/02/2022 Office Visit Family Medicine Matthew Hopkins, Encoun ter for wellness examination in adult (Primary [...] series) 01/25/2021, 01/04/2021 FIT-DNA 05/02/2022 05/02/2019 Colonoscopy 07/14/2027 05/03/2019 Colorectal Cancer Screening 07/14/2027 Zoster Vaccines Completed 10/11/2020, 07/06/2020 Pneumococcal Vaccine: [...] filtration rate (GFR) (06/02/2022 9:33 AM CDT) athologist Signature GFR >60 06/02/2022 [facility] 2:16 PM CDT [facility] >60 06/02/2022 [facility] Gabonese GFR 2:16 PM CDT [facility] Comment: [...] Organization Address City/State/ZIP Code Phon e Number [facility] [address] [place] [address] CBC Branch Off w/Diff (06/02/2022 9:33 AM CDT) P athologist Signature WBC 4.6 3.5 - 10.5 06/02/2022 [facility] [place] K/uL 10:26 AM CDT [place] RBC 4.42 3.90 - 06/02/2022 [facility] [place] 5.00 M/uL 10:26 AM CDT [place] Hemoglobin 14.0 12.0 - 06/02/2022 [facility] [place] 15.5 g/dL 10:26 AM CDT [place] Hematocrit 43.0 35.0 - 06/02/2022 [facility] [place] 44.0 % 10:26 AM CDT [place] Platelets 315 150 - 450 06/02/2022 [facility] K/uL 10:26 AM CDT [place] MCV 97.3 81.6 - 06/02/2022 [facility] [place] 98.3 fL 10:26 AM CDT [place] MCH 31.7 26.0 - 06/02/2022 [facility] [place] 32.0 pg 10:26 AM CDT [place] MCHC 32.6 32.0 - 06/02/2022 [facility] [place] 36.0 g/dL 10:26 AM CDT [place] RDW 12.6 11.9 - 06/02/2022 [facility] [place] 15.5 % 10:26 AM CDT [place] Lymphocytes % 43.7 % 06/02/2022 [facility] [place] 10:26 AM CDT [place] Mid-size Cells 8.7 % 06/02/2022 [facility] 10:26 AM CDT [place] Granulocytes/Tung 47.6 % 06/02/2022 [facility] trophils 10:26 AM CDT [place] Lymphocytes 2.0 0.9 - 2.9 06/02/2022 [facility] Absolute K/uL 10:26 AM CDT [place] MIDS Absolute 0.4 0.4 - 1.5 06/02/2022 [facility] K/uL 10:26 AM CDT [place] Granulocytes/Tung 2.2 1.7 - 7.0 06/02/2022 [facility] trophils K/uL 10:26 AM CDT [place] Absolute Specimen Anatomical Collection Method Collection Time Receive d Time (Source) Location / / Volume Laterality 06/02/2022 9:33 AM 2 9:36 CDT AM CDT Matthew Hopkins MD LAB BLOOD ORDERABLES Performing Organization Address City/[facility]/ZIP Code Phon e Number [facility] [place] [address] [place] [address] TSH (06/02/2022 9:33 AM CDT) athologist Signature TSH, Sensitive 1.80 0.46 - 06/03/2022 [facility] 4.68 mIU/L 2:09 PM CDT CENTER [...] MD LAB BLOOD ORDERABLES Performing Organization Address City/[facility]/ZIP Code Phon e Number [facility] [address] [place] [address] (ABNORMAL) Lipid panel (06/02/2022 9:33 AM CDT) athologist Signature Cholesterol 316 (H) 0 - 199 06/02/2022 [facility] mg/dL 2:16 PM T [facility] Comment: Recommended by National Cholesterol Education Program (ATP III) -------- Cholesterol Ranges -------- <200 ?Desirable 200-239 ? Borderline high >=240 ? High Triglycerides 741 (H) 0 - 149 mg/dL 06/02/2022 2:16 PM CDT [facility] Comment: -------- TRIG Ranges -------- <150 ?Normal 150-199 ? Borderline high 200-499 ? High >=500 ? Very high HDL 41 40 - 250 mg/dL 06/02/2022 2:16 PM CDT [facility] Comment: -------- HDL Ranges -------- <40 ?Low 40-59 ?Normal >=60 ? Optimal LDL Calculated see below 0 - 99 mg/dL 06/02/2022 2:16 PM CDT [facility] Comment: Trig >400, calculated LDL invalid. -------- LDL Ranges -------- <100 ? Optimal 100-129 ?Near optimal/above op timal 130-159 ?Borderline high 160-189 ?High >=190 ?Very high Fasting? Yes 06/02/2022 9:36 AM CDT [facility] Specimen Anatomical Collection Method Collection Time Receive d Time (Source) Location / / Volume Laterality Blood 06/02/2022 9:33 AM 2 CDT 12:39 PM CDT D. Avery Molenaar MD LAB BLOOD ORDERABLES Performing Organization Address City/[facility]/ZIP Code Phon e Number [facility] [address] [place] [address] (ABNORMAL) Basic metabolic panel (06/02/2022 9:33 AM CDT) Analysis Performed At [facility] Time Signature Sodium 141 135 - 145 06/02/2022 [facility] mEq/L 2:16 PM [facility] Potassium 5.0 3.5 - 5.1 06/02/2022 [facility] mEq/L 2:16 PM [facility] Chloride 102 98 - 107 06/02/2022 [facility] mEq/L 2:16 PM [facility] CO2 28 22 - 29 06/02/2022 [facility] mmol/L 2:16 PM [facility] Creatinine 0.8 0.4 - 1.2 06/02/2022 [facility] mg/dL 2:16 PM [facility] BUN 10 5 - 25 06/02/2022 [facility] mg/dL 2:16 PM [facility] Glucose 114 (H) 70 - 100 06/02/2022 [facility] mg/dL 2:16 PM [facility] Calcium, 9.5 8.4 - 10.2 06/02/2022 [facility] Total,S mg/dL 2:16 PM [facility] Specimen Anatomical Collection Method Collection Time Receive d Time (Source) Location / / Volume Laterality Blood 06/02/2022 9:33 AM CDT 12:39 PM CDT Matthew Hopkins MD LAB BLOOD ORDERABLES Performing Organization Address City/State/ZIP Code Phon e Number [facility] [address] [place] [address] from Last 3 Months Insurance Payer Benefit Plan / Subscriber ID Effective Dates Phone Addre ss Type Group BCBS OF BCBS OF [id number] 2020-[place] [address] [address] [place] [address] Care Teams Superintendent Maintenance Relationship Specialty Start Date End Date Matthew Hopkins MD PCP - General 06/03/[address] [place] [address]
--- OUTSIDE RECORDS SUMMARY | 2022-08-12 10:38 | XMS_ITS | Encounter Summary ---
:1960 Author Organization [facility] Address [address] [place] [address] Care Team Providers Name Role Phone Tejada Toñaanna marie Jerez APRN, [employer] Primary Care Provider [phone] Reason for Referral Imaging (Routine) - Closed Specialty Diagnoses / Procedures Referred By Contact Refer red To Contact Radiology Diagnoses Visit for screening mammogram Matthew Hopkins MD Procedures Mammogram breast screening tomosynthesis bilateral Mammogram breast screening bilateral [address] [place] [address] Referral ID Status Reason Start Date Expiration Date Visits Requ ested Visits Authorized [id number] Closed 04/23/2020 10/20/2020 1 1 Reason for Visit Reason Comments Medication Visit Encounter Details Date Type Department Care Team Description 04/23/2020 Office Visit Matthew Yeh Visit for screening mammogra m (Primary Dx); [address] [place] A[place] Medication monitoring encounter; [place], [place] [address] Diabetes mellitus screening; [phone] [place] Screening cholesterol level; [place], [place] Hypothyroid ism, unspecified type; [address] Screening for deficiency anemia; [phone] Anxiety; (Work) Depression, unspecified depression type Social [...] 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 They had acquired property and now they have built a house on the [address] for them to live in. Currently they [...] renewal of medications and refer her to [facility] for mammogram. documented in this encounter Plan [...] Cholesterol 331 (A) 0 - 199 04/24/2020 [facility] mg/dL 3:03 PM [facility] Comment: Recommended by National Cholesterol Education Program (ATP III) -------- Cholesterol Ranges -------- <200 ? Desirable 200-239 ? Borderline high >=240 ? High Triglycerides 789 (A) 0 - 149 mg/dL 04/24/2020 3:[address] [facility] Comment: -------- TRIG Ranges -------- <150 ?Normal 150-199 ? Borderline high 200-499 ? High >=500 ? Very high HDL 40 40 - 60 mg/dL 04/24/2020 3:03 PM T [facility] Comment: -------- HDL Ranges -------- <40 ?Low 40-59 ?Normal >=60 ? Optimal LDL Calculated see below 0 - 99 mg/dL 04/24/2020 3:[address] [facility] Comment: -------- LDL Ranges -------- [...] MD LAB BLOOD ORDERABLES Performing Organization Address City/[facility]/ZIP Code Phon e Number [facility] [address] [place] [phone] TSH (04/23/2020 12:21 PM CDT) athologist Signature [...] MD LAB BLOOD ORDERABLES Performing Organization Address City/[facility]/ZIP Code Phon e Number [facility] [address] [place] [phone] documented in this encounter Visit Diagnoses Diagnosis [...] type documented in this encounter Care Teams Cranberry Bog Supervisor Relationship Specialty Start Date End Date Toña Tejada, BOILER RELINER, [employer] PCP - General Family Medicine 01/06/19 06/06/20 [address] [place] [address] documented as of this encounter
--- OUTSIDE RECORDS SUMMARY | 2022-08-12 10:38 | XMS_ITS | Encounter Summary ---
:1960 Author Organization [facility] Address [address] [place] [address] Care Team Providers Name Role Phone None, Pcp Primary Care Provider Unavailable Reason for Visit Reason Onset Date Comments Referral 05/27/2021 Encounter Details Date Type Department Care Team Description 05/27/2021 Telephone [place] Matthew Hopkins MD Referral [address] [place], [place] [address] [place], [place] [phone] [address] (Wo rk) Social History Tobacco Use Types [...] Pt said it has been scheduled in [place] for 06/11/21 at 2:00pm. Telephone Encounter - [...] from them. You can reach her at [phone]. documented in this encounter Plan of Treatment Not on filedocumented as of this encounter Visit Diagnoses Not on filedocumented in this encounter Care Teams Pest Control Applicator Relationship Specialty Start Date End Date None, Pcp PCP - General Rope Tow Operator 06/26/20 06/02/21 [address] [place] [address] documented as of this encounter
--- OUTSIDE RECORDS SUMMARY | 2022-08-12 10:38 | XMS_ITS | Encounter Summary ---
:[address] [facility] Address [address] [place] [address] Care Team Providers Name Role Phone None, Pcp Primary Care Provider Unavailable Encounter Details Date Type Department Care Team Description 04/23/2021 Refill Matthew Yeh, Hypothyroidism, unspecified type; [address] [facility] [address] Anxiety; [place] [address] Depression, unspecified depression type [phone] [place] [address] Social History Tobacco Use Types Packs/Day Years [...] type documented in this encounter Care Teams Trimmer Sawyer Relationship Specialty Start Date End Date None, Pcp PCP - General Architect Marine 06/26/20 06/02/21 [address] [place] [address] documented as of this encounter
--- OUTSIDE RECORDS SUMMARY | 2022-08-12 10:38 | XMS_ITS | Encounter Summary ---
:1960 Author Organization [facility] Address [address] [place] [address] Care Team Providers Name Role Phone None, Pcp Primary Care Provider Unavailable Reason for Visit Reason Comments Med Refill Encounter Details Date Type Department Care Team Description 04/23/2021 Refill Matthew Yeh, Hypothyroidism, [address] unspecified type [place] [address] [phone] [place] [address] Social History Tobacco Use Types Packs/Day Years [...] type documented in this encounter Care Teams Auto Design Checker Relationship Specialty Start Date End Date None, Pcp PCP - General Payroll Master 06/26/20 06/02/21 [address] [place] [address] documented as of this encounter
--- OUTSIDE RECORDS SUMMARY | 2022-08-12 10:38 | XMS_ITS | Encounter Summary ---
:1960 Author Organization Address [address] [place] [address] Care Team Providers Name Role Phone Toña Tejada APRN, ANYI Primary Care Provider [phone] Reason for Visit Reason Onset Date Comments RX 04/25/2020 Encounter Details Date Type Department Care Team Description 04/25/2020 Telephone [place] Matthew Hopkins MD RX [address] [place], [place] [address] [place], [place] [phone] (Wo rk) Social History Tobacco Use Types Packs/Day Years Used Date Former Smoker Smokeless Tobacco: Never Used Alcohol Use Standard Drinks/Week Comments Yes 0 (1 standard drink = 0.6 oz pure alcoho l) Sex Assigned at Date Recorded Not on file documented as of this encounter Miscellaneous Notes Telephone Encounter - Elizabeth Mishra - 04/25/2020 2:26 PM CDT Patient is currently at pharmacy ([facility] in [place]) wanting to cigar packer and picker RX for Synthroid but it is not there. She is wondering if this could be sent while she is there. documented in this encounter Plan of Treatment Not on filedocumented as of this encounter Visit Diagnoses Diagnosis Mixed hyperlipidemia - Primary Hypothyroidism, unspecified type documented in this encounter Care Teams Metal Burnisher Relationship Specialty Start Date End Date Toña Tejada APRN, FLIGHT MANAGER PCP - General Family Medicine 01/06/19 06/06/20 100 [place] [address] documented as of this encounter
--- OUTSIDE RECORDS SUMMARY | 2022-08-12 10:38 | XMS_ITS | Encounter Summary ---
:[address] [facility] Address [address] [place] [address] Care Team Providers Name Role Phone None, Pcp Primary Care Provider Unavailable Encounter Details Date Type Department Care Team Description 04/29/2021 Lab [place] Diabetes mellitus screening; [address] Mixed hyperlipidemia; [place], [place] [address] Hypothyroidism, unspecified type; [phone] Screening for d eficiency anemia Social History [...] P athologist Signature Fasting? Yes 04/29/2021 8:51 [facility] AM CDT [place] Specimen Anatomical Collection Method Collection Time Receive d Time (Source) Location / / Volume Laterality 04/29/2021 8:36 AM 8:36 CDT AM CDT Matthew Hopkins MD LAB BLOOD ORDERABLES Performing Organization Address City/State/ZIP Code Phon e Number [facility] [place] [address] [place] [address] HemoCue glucose (04/29/2021 8:34 AM CDT) P athologist Signature Glucose, Bld 96 70 - 100 04/29/2021 [facility] mg/dL 8:53 AM CDT [place] Comment: . Specimen Anatomical Collection Method Collection Time Receive d Time (Source) Location / / Volume Laterality 04/29/2021 8:34 AM 8:51 CDT AM CDT Matthew Hopkins MD LAB BLOOD ORDERABLES Performing Organization Address City/[facility]/ZIP Code Phon e Number [facility] [place] [address] [place] [address] CBC Branch Off w/Diff (04/29/2021 8:34 AM [...] CDT [place] RDW 12.5 11.9 - 04/29/2021 [facility] 15.5 % 8:53 AM CDT [place] Lymphocytes % 35.9 % 04/29/2021 [facility] 8:53 AM CDT [place] Mid-size Cells 6.3 % 04/29/2021 [facility] 8:53 AM CDT [place] Granulocytes/Tung 57.8 % 04/29/2021 [facility] trophils 8:53 AM CDT [place] Lymphocytes 2.2 0.9 - 2.9 04/29/2021 [facility] Absolute K/uL 8:53 AM CDT [place] MIDS Absolute 0.4 0.4 - 1.5 04/29/2021 [facility] K/uL 8:53 AM CDT [place] Granulocytes/Tung 3.5 1.7 - 7.0 04/29/2021 [facility] trophils K/uL 8:53 AM CDT [place] Absolute Specimen Anatomical Collection Method Collection Time Receive d Time (Source) Location / / Volume Laterality 04/29/2021 8:34 AM 8:51 CDT AM CDT Matthew Hopkins MD LAB BLOOD ORDERABLES Performing Organization Address City/State/ZIP Code Phon e Number [facility] [place] [address] [place] [address] (ABNORMAL) TSH (04/29/2021 8:34 AM CDT) Analysis [...] Organization Address City/State/ZIP Code Phon e Number [facility] [address] [place] [address] (ABNORMAL) Lipid panel (04/29/2021 8:34 AM CDT) athologist Signature Cholesterol 225 (H) 0 - 199 04/29/2021 [facility] mg/dL 2:45 PM CDT [facility] Comment: Recommended by National Cholesterol Education Program (ATP III) -------- Cholesterol Ranges -------- <200 ?Desirable 200-239 ? Borderline high >=240 ? High Triglycerides 329 (H) 0 - 149 mg/dL 04/29/2021 2:45 PM CDT [facility] Comment: -------- TRIG Ranges -------- <150 ?Normal 150-199 ? Borderline high 200-499 ? High >=500 ? Very high HDL 52 40 - 250 mg/dL 04/29/2021 2:45 PM CDT [facility] Comment: -------- HDL Ranges -------- <40 ?Low 40-59 ?Normal >=60 ? Optimal LDL Calculated 107 (H) 0 - 99 mg/dL 04/29/2021 2:45 PM CDT [facility] Comment: -------- LDL Ranges -------- <100 ? Optimal 100-129 ?Near optimal/above op timal 130-159 ?Borderline high 160-189 ?High >=190 ?Very high Fasting? Yes 04/29/2021 8:51 AM CDT [facility] Specimen Anatomical Collection Method Collection Time Receive d Time (Source) Location / / Volume Laterality Blood 04/29/2021 8:34 AM CDT 12:45 PM CDT D. Avery Hopkins MD LAB BLOOD ORDERABLES Performing Organization Address City/State/ZIP Code Phon e Number [facility] [address] [place] [address] documented in this encounter Visit Diagnoses Diagnosis Diabetes mellitus screening Screening for diabetes mellitus Mixed hyperlipidemia Hypothyroidism, unspecified type Screening for deficiency anemia Screening for other and unspecified defi ciency anemia documented in this encounter Care Teams Rug Inspector Helper Relationship Specialty Start Date End Date None, Pcp PCP - General Lead Applications Developer 06/26/20 06/02/21 [address] [place] [address] documented as of this encounter
--- OUTSIDE RECORDS SUMMARY | 2022-08-12 10:38 | XMS_ITS | Encounter Summary ---
:1960 Author Organization [facility] Address [address] [place] [address] Care Team Providers Name Role Phone Matthew Hopkins MD Primary Care Provider Reason for Visit Reason Onset Date Comments anti-nausea Rx 07/09/2022 Encounter Details Date Type Department Care Team Description 07/09/2022 Telephone [place] Matthew Hopkins MD anti-nausea Rx [address] [place], [place] [address] [place], [place] [phone] (Wo rk) Social History Tobacco Use Types [...] Genesis know that I have sent to [facility] in [place] for her prescription for Zofran Telephone Encounter - Dora Downing RN - 07/10/2022 10:56 AM CDT Please order for nausea before colonoscopy. Thank you. Telephone Encounter - Shayla Matt - 07/09/2022 10:59 AM CDT Pt called stating she is going to be having a colonoscopy 07/14/22 at [facility]. Pt said when had this procedure before she had quite a bit of nausea. [facility] advised her to contact her primary and see if he would prescribe an anti-nausea Rx like Zofran. Pt uses [facility]. Please call Pt at [phone] to advise. documented in this encounter Plan of Treatment Not on filedocumented as of this encounter Visit Diagnoses Diagnosis Nausea - Primary Nausea alone documented in this encounter Care Teams Supply Chain Systems Manager Relationship Specialty Start Date End Date Matthew Hopkins MD PCP - General 06/03/[address] [place] [address] documented as of this encounter
--- OUTSIDE RECORDS SUMMARY | 2022-08-12 10:38 | XMS_ITS | Encounter Summary ---
:1960 Author Organization [facility] Address [address] [place] [address] Care Team Providers Name Role Phone Toña Tejada DIRECTOR EMERGENCY DEPARTMENT, [facility] Primary Care Provider Reason for Visit Reason Onset Date Comments patient call 01/24/2020 Encounter Details Date Type Department Care Team Description 01/24/2020 Telephone [place] Toña Tejada, patient call [address] [employer] DIRECTOR EMERGENCY DEPARTMENT, [place], [place] [address] [facility] [phone] [place], [place] [address] Social History Tobacco Use [...] any questions she can be reached at [phone] documented in this encounter Plan of Treatment Not on filedocumented as of this encounter Visit Diagnoses Diagnosis Anxiety Anxiety state, unspecified Depression, unspecified depression type documented in this encounter Care Teams Cardiology Manager Relationship Specialty Start Date End Date Toña Tejada, DIRECTOR EMERGENCY DEPARTMENT, DELIVERY SUPERVISOR PCP - General Family Medicine 01/06/19 06/06/20 100 [facility] [place] [address] documented as of this encounter
--- OUTSIDE RECORDS SUMMARY | 2022-08-12 10:38 | XMS_ITS | Encounter Summary ---
:1960 Author Organization [facility] Address [address] [place] [address] Care Team Providers Name Role Phone Matthew Hopkins MD Primary Care Provider Encounter Details Date Type Department Care Team Description 07/25/2022 Telephone [place] Matthew Hopkins MD [address] [place], [place] [address] [place], [place] [phone] (Wo rk) Social History Tobacco Use Types Packs/Day Years Used Date Former Smoker Smokeless Tobacco: Never Used Alcohol Use Standard Drinks/Week Comments Yes 0 (1 standard drink = 0.6 oz pure alcoho l) Sex Assigned at Date Recorded Not on file documented as of this encounter Miscellaneous Notes Telephone Encounter - Roxy Leggett LPN - 07/25/2022 11:14 AM CDT 07/14/2022 Repeat in 5 years [facility] documented in this encounter Plan of Treatment Not on filedocumented as of this encounter Visit Diagnoses Not on filedocumented in this encounter Care Teams Mud Analysis Operator Relationship Specialty Start Date End Date Matthew Hopkins MD PCP - General 06/03/[address] [place] [address] documented as of this encounter
--- OUTSIDE RECORDS SUMMARY | 2022-08-12 10:38 | XMS_ITS | Encounter Summary ---
:1960 Author Organization [facility] Address [address] [place] [address] Care Team Providers Name Role Phone None, Pcp Primary Care Provider Unavailable Encounter Details Date Type Department Care Team Description 12/24/2020 Orders Only [place] Matthew Hopkins MD [address] [facility] [address] [facility] [address] [place], [place] [address] [place], [place] [phone] [address] (Wo rk) Social History Tobacco Use Types [...] on filedocumented in this encounter Care Teams Airborne Mission Systems Relationship Specialty Start Date End Date None, Pcp PCP - General Broommaking Supervisor 06/26/20 06/02/21 [address] [place] [address] documented as of this encounter
--- OUTSIDE RECORDS SUMMARY | 2022-08-12 10:38 | XMS_ITS | Encounter Summary ---
:1960 Author Organization [facility] Address [address] [place] [address] Care Team Providers Name Role Phone Tejada Toñaanna marie Jerez APRN, CLARIFICATION OPERATOR Primary Care Provider [phone] Encounter Details Date Type Department Care Team Description 04/08/2019 Lab [place] Hypothyroidism, unspecified [address] [place] [address] Social History Tobacco Use Types [...] nts TSH Routine 04/08/2019 3:14 PM Hypothyroidism, Result s for this CDT unspecified type procedure a re in the results section. documented in this encounter Results TSH (04/08/2019 3:14 PM CDT) P athologist Signature TSH, Sensitive 3.36 0.46 - 04/08/2019 [facility] L 4.68 mIU/L 6:52 PM CDT CENTER [...] CNP LAB BLOOD ORDERABLES Performing Organization Address City/State/[facility] Code Phon e Number [facility] [address] [place] [address] documented in this encounter Visit Diagnoses Diagnosis Hypothyroidism, unspecified type documented in this encounter Care Teams Customer Service Leader Relationship Specialty Start Date End Date Toña Tejada APRN, CLARIFICATION OPERATOR PCP - General Family Medicine 01/06/19 06/06/[address] [place] [address] documented as of this encounter
--- OUTSIDE RECORDS SUMMARY | 2022-08-12 10:38 | XMS_ITS | Encounter Summary ---
:1960 Author Organization [facility] Address [address] [place] [address] Care Team Providers Name Role Phone None, Pcp Primary Care Provider Unavailable Encounter Details Date Type Department Care Team Description 10/17/2020 Telephone [place] None, Pcp [address] [place], [place] [address] [place] [address] Social History Tobacco Use Types Packs/Day Years Used Date Former Smoker Smokeless Tobacco: Never Used Alcohol Use Standard Drinks/Week Comments Yes 0 (1 standard drink = 0.6 oz pure alcoho l) Sex Assigned at Date Recorded Not on file documented as of this encounter Miscellaneous Notes Telephone Encounter - Roxy Leggett LPN - 10/17/2020 10:45 AM CST Immunization update K MACHINE OPERATOR documented in this encounter Plan of Treatment Not on filedocumented as of this encounter Visit Diagnoses Not on filedocumented in this encounter Care Teams Paper Baler Relationship Specialty Start Date End Date None, Pcp PCP - General Spray I Painter 06/26/20 06/02/21 [address] [place] [address] documented as of this encounter
--- OUTSIDE RECORDS SUMMARY | 2022-08-12 10:38 | XMS_ITS | Encounter Summary ---
:[address] [facility] Address [address] [place] [address] Care Team Providers Name Role Phone None, Pcp Primary Care Provider Unavailable Encounter Details Date Type Department Care Team Description 01/04/2021 Immunization Family Medicine [address] [place] [address] Social History Tobacco Use Types Packs/Day Years [...] on filedocumented in this encounter Care Teams Merchandising Representative Relationship Specialty Start Date End Date None, Pcp PCP - General Food Demonstrator 06/26/20 06/02/21 [address] [place] [address] documented as of this encounter
--- OUTSIDE RECORDS SUMMARY | 2022-08-12 10:38 | XMS_ITS | Encounter Summary ---
:1960 Author Organization [facility] Address [address] [place] [address] Care Team Providers Name Role Phone None, Pcp Primary Care Provider Unavailable Reason for Visit Reason Comments Med Refill Encounter Details Date Type Department Care Team Description 04/22/2021 Refill Matthew Yeh, Hypothyroidism, unspecified type; [address] [facility] [address] Anxiety; [place], [place] [address] [place] Depression, unspecified depression type [phone] [place] [address] Social History Tobacco Use Types Packs/Day Years [...] orders have been placed. Telephone Encounter - Wedni Espana - 04/23/2021 11:48 AM CDT Pt [...] type documented in this encounter Care Teams Tinner Helper Relationship Specialty Start Date End Date None, Pcp PCP - General Child Support Case Officer 06/26/20 06/02/21 [address] [place] [address] documented as of this encounter
--- OUTSIDE RECORDS SUMMARY | 2022-08-12 10:38 | XMS_ITS | Encounter Summary ---
:1960 Author Organization [facility] Address [address] [place] [address] Care Team Providers Name Role Phone Matthew Hopkins MD Primary Care Provider Reason for Visit Reason Comments Pre-op Exam DOS 10-10 Colonoscopy Encounter Details Date Type Department Care Team Description 06/30/2022 Consult Matthew Yeh, Encounter for screening [address] [address] colonoscopy (Primary Dx) [place], [place] [address] [phone] [place] [address] Social History Tobacco Use Types Packs/Day Years [...] evaluation that will be done at the [facility] on 07/14/2022. COVID-19 she has not [...] for 37+ years [facility] and she works full-time. Her is retired [...] her mammogram this fall time at the [facility]. COLON CANCER SCREENING she had a [...] solution; Please follow the directions on your [facility] colonoscopy prep sheet. The overall assessment is [...] imary documented in this encounter Care Teams Survey Research Center Director Relationship Specialty Start Date End Date Matthew Hopkins MD PCP - General 06/03/[address] [place] [address] documented as of this encounter
--- OUTSIDE RECORDS SUMMARY | 2022-08-12 10:39 | XMS_ITS | Encounter Summary ---
:1960 Author Organization [facility] Address [address] [place] [address] Care Team Providers Name Role Phone Toña Tejada APRN, CNP Primary Care Provider [phone] Reason for Visit Reason Comments Med Refill Encounter Details Date Type Department Care Team Description 04/08/2019 Office Visit [place] Toña Tejada Hypothyroidism, unspecified type (Primary Dx); [address] M, ANYI MORELOS Colon cancer screening; [place], [place] 100 [facility] Screening mammogram, encounter for [id number] [place] [address] Social History Tobacco Use Types Packs/Day Years [...] call with the lab results Mammogram, call [facility], schedule documented in this encounter Progress Notes [...] patient reports she [facility] colonoscopy in [facility] in [place], with no polyps removed, and is likely [...] proceed with a bilateral screening mammogram at [facility], and will call to schedule an appointment. [...] encounter Results Cologuard (05/02/2019 12:15 PM CDT) [facility] gist Method Time Signature Cologuard Negative Not Applicable EXACT result [employer] Comment: A negative result indicates a low [...] Pacheco al, N Eng l J Med 2014;370(14):5584-0674) COLOGUAR D RE-SCREENING RECOMMENDATION: Periodic routine colorectal cancer screening is an important part of preventive healthcare for asymptomatic persons at average risk for colorectal cancer. Following a nega tive Cologuard result, the [place] [employer] Society and U.S. Multi-Society Task Force screening guidelines recommend a Cologuard re-screening interval of 3 years. References: [place] Cancer Soci ety (ACS). Colorectal cancer prevention and early detection. [place], [place]: [place] [employer] Society; [updated 2015Jan 26]. https://www.cancer.org/cancer/colon-rect al-cancer/iggrbhevw-jydjbzfdz-lpaglkt/ac s-recommendations.html. Accessed June 04, 2018; Lion DK, Bryan ROMAN, Vipul ThorntonK, Colorectal Cancer Screening: Recommendations for Physicians and Patients from th e U.S. Multi-Society Task Force on Color ectal Cancer Screening, Am J Gastroenterology 2017; 112:5935-0686. Test Type: Composite algorithmic analysi s of [...] can be accessed at the following location: www.[employer].GoalShare.com/results. Additional de scription of the Cologuard test process, warnings and precautions can be found at www.cologuardtest.com. Rx Only. [employer], [address] [place], [address], , Fercho wolff Electroless Plater, KERRI PETTIT, Ph.D., [facility], [place] NO: [id number] Specimen Anatomical Collection Method Collection Time Receive d Time (Source) Location / / Volume Laterality Stool 05/02/2019 12:15 05/03/2019 6:50 PM CDT PM CDT Toña Tejada APRN, LUMBER LOADER LAB BODY FLUIDS AND STOOL S ORDERABLES Performing Organization Address City/State/ZIP Code Phon e Number [employer], [address] [place] [address] [facility] [address] TSH (04/08/2019 3:14 PM CDT) [...] Organization Address City/State/ZIP Code Phon e Number [facility] [address] [place] [address] documented in this encounter Visit Diagnoses Diagnosis Hypothyroidism, unspecified type - Prima ry Colon cancer screening Special screening for malignant neoplasm s, colon Screening mammogram, encounter for documented in this encounter Care Teams Hat Checker Relationship Specialty Start Date End Date Toña Tejada APRN, LUMBER LOADER PCP - General Family Medicine 01/06/19 06/06/[address] [place] [address] documented as of this encounter
--- OUTSIDE RECORDS SUMMARY | 2022-08-12 10:39 | XMS_ITS | Clinical Summary ---
:1960 Author Organization [facility] [place] [address] Care Team Providers Name Role Phone Toña [...] Comments Blood Pressure 145/92 08/11/2018 4:11 PM [facility] Pulse 84 08/11/2018 4:11 PM [facility] Temperature 37.1 ??C (98.8 ??F) 05/03/2018 11:47 AM CDT Respiratory Rate 18 08/11/2018 4:11 PM [facility] Oxygen Saturation 95% 05/03/2018 11:47 AM CDT Inhaled Oxygen Concentration - - Weight 80.6 kg (177 lb 12.8 oz) 08/11/2018 4:09 PM [facility] Height 160 cm (5' 3) 05/03/2018 11:47 [...] on filefrom Last 3 Months Care Teams Dental Equipment Repairer Relationship Specialty Start Date End Date Toña Tejada NP PCP - General Emergency Medicine 08/11/18
--- OUTSIDE RECORDS SUMMARY | 2022-08-12 10:39 | XMS_ITS | Encounter Summary ---
:1960 Author Organization [facility] Address [address] [place] [address] Care Team Providers Name Role Phone Toña Tejada APRN, CNP Primary Care Provider [phone] Reason for Visit Reason Comments Follow-up Encounter Details Date Type Department Care Team Description 01/06/2019 [place] Anxiety (Primary Dx); [address] [place], ANYI MORELOS Depression, unspecified depression type [place] [address] [facility] [place] [address] [place] [address] Social History Tobacco Use Types Packs/Day Years [...] had been evaluated by a psychiatrist, at [facility] in [place], and was started on Cymbalta 60 mg [...] is in treatment for alcohol addiction at [place]. The patient reports her mother, who lives in [place], is now 86, acts as if she [...] type documented in this encounter Care Teams Instrumentation And Control Technician Relationship Specialty Start Date End Date Toña Tejada APRN, CAN DRAGGER PCP - General Family Medicine 01/06/19 06/06/20 [address] [place] [address] documented as of this encounter
== END 2022-08-12 09:56 | disposition home or self-care (01) ==
PROVIDERS: PCP Family Medicine; Visit Provider Family Medicine
DX: Z12.31 Encounter for screening mammogram for malignant neoplasm of breast (principal)
CPT/HCPCS: 77063; 77067

== ENCOUNTER 2025-04-13 07:57 | Outpatient (CLI) | payer BC, SELFPAY ==
--- NOTE | 2025-04-13 08:15 | CRLHL7_ITS ---
For Patients: As a result of the Century Cures Act, medical imaging exams and procedure reports are released immediately into your electronic medical record. You may view this report before your referring provider. If you have questions, please contact your health care provider. INDICATION: BILATERAL SCREENING MAMMOGRAM, ASYMPTOMATIC 65 Y/O FEMALE COMPARISON: 08/12/2022, 07/09/2020, 03/22/2015 TECHNIQUE: Digital mammogram in CC and MLO projections including computer-aided detection (CAD) and tomosynthesis. BREAST COMPOSITION: There are scattered areas of fibroglandular density. FINDINGS: No suspicious findings. ASSESSMENT: BI-RADS 2 Benign RECOMMENDATION: Annual screening mammogram. A lay language report of this examination will be provided to the patient. Dictated by: Gui Gregory MD @ 04/13/2025 08:57:01 (Electronically Signed)
== END 2025-04-13 07:58 | disposition home or self-care (01) ==
LOC: MAMMO 07:58
PROVIDERS: PCP Family Medicine
DX: Z12.31 Encounter for screening mammogram for malignant neoplasm of breast (principal)
CPT/HCPCS: 77063; 77067